=== PATIENT | female | born 1955 | race Caucasian/White ===

== ENCOUNTER 2023-07-15 22:54 | Inpatient (IN) | payer MEDICARE, SELFPAY ==
[2023-07-15 19:12] VITALS: BP 142/84
[2023-07-15] MEDS: ZOSYN 50 IV (20:44)
[2023-07-15 21:05] LABS: % Basophils 0.3 % (0-2); % Eosinophils 4.5 % (0-6); % Immature Granulocytes 0.3 % (0-0.5); % Lymphocytes 15.9 % (20.5-51.1); % Monocytes 7.2 % (1.7-9.3); % Neutrophils 71.8 % (42.2-75.2); Absolute Eosinophils 0.3 10^3/uL (0-0.7); Absolute Monocytes 0.5 10^3/uL (0.1-0.6); Absolute Neutrophils 4.7 10^3/uL (1.4-6.5); Hematocrit 34.5 % (37.0-47.0); Mean Corp Hgb Conc. 34.8 g/dL (33.0-37.0); Mean Corpuscular Volume 94.8 fL (81.0-99.0); Mean Platelet Volume 9.6 fL (7.4-10.4); Nucleated Red Blood Cells % 0 %; Platelet Count 145 10^3/uL (130-400); Red Blood Cell Count 3.64 10^6/uL (4.20-5.40); Red Cell Dist. Width 13.5 % (11.5-14.5); White Blood Cell Count 6.5 10^3/uL (4.8-10.8)
--- NOTE | 2023-07-15 21:20 | ED.SKININJ ---
HPI-Injury
General
Chief Complaint: Skin Problem
Source: patient
Exam Limitations: none
Time Seen by Provider: 07/15/23 19:41
Nursing documentation reviewed up to this point in time: agreed with
Travel History
Have you had any contact with someone who has COVID-19?: No
Do you have any symptoms of coronavirus? Fever > 100 degrees, chills, cough, shortness of breath, sore throat, loss of taste or smell, muscle aches, or headache?: No
History of Present Illness-Injury
Initial Injury comments:
68-year-old female with history of HTN, asthma, chronic back pain on oxycodone and gabapentin, presents with right inner thigh redness, swelling, pain from a cat scratch by her cat 1 week ago. She states initially she washed the area and it was
okay for 2 days then it started getting sore and weeping clear fluid and this morning the pain was severe. She denies fever or chills. Denies nausea or vomiting.
Cat is an indoor cat and is up-to-date with his immunization.
Past History
Past History
ED Past Medical History: Cancer
ED Past Surgical History: Cholecystectomy, and Orthopedic
Social History
Tobacco: Non-smoker
Alcohol: None
Drug: None
Living: with family
Employment: Employed
Family History
Family History: Hypertension
Review of Systems
Review of Systems
Allergies reviewed?: Yes
All Other Systems: ROS reviewed and negative except as documented in HPI and ROS
Constitutional: Denies fever or chills
Respiratory: Denies trouble breathing
Cardiac: Denies chest pain
ABD/GI: Denies abdominal pain
Musculoskeletal: Reports back pain (chronic)
Skin: Reports other (redness, swelling, pain around cat bite right medial thigh)
Phy Exam
Physical Exam
Physical Exam:
GENERAL: No acute distress. A&Ox3. Morbid obesity
CONSTITUTIONAL: Afebrile.
RESPIRATORY: Regular respirations, nonlabored, lungs clear.
CARDIOVASCULAR: Regular rate and rhythm, no murmurs, no rubs.
GI: Soft, obese, nontender, normal BS
MUSCULOSKELETAL: Difficulty ambulating due to obesity. Ambulated to BR and back with cane, slowly with significant pain inner right thigh. Well perfused.
SKIN: Warm, dry, pink. Medial right lower thigh with 20 x 24 erythematous, tender, mildly firm area with puncture in center. No drainage
PSYCH: Normal mood and affect. Well kept, interactive and appropriate
NEUROLOGIC: Awake, alert and oriented. No focal neurological deficits
Course
Orders/Labs/Results
Orders:
Orders
07/15/23 20:29
Piperacillin/Tazo 3.375 Gram [Zosyn] 3.375 gram in 50 ml IV NOW
07/15/23 20:55
Complete Blood Count/With Diff Urgent
Comprehensive Metabolic Panel Urgent
Abnormal Lab Results
07/15/23
20:55
RBC 3.64 L 10^6/uL
(4.20-5.40)
Hct 34.5 L %
(37.0-47.0)
MCH 33.0 H pg
(27.0-31.0)
Absolute Lymphs (auto) 1.0 L 10^3/uL
(1.2-3.4)
Lymphocytes % 15.9 L %
(20.5-51.1)
BUN 23 H mg/dl
(7-17)
Total Bilirubin 1.4 H mg/dl
(0.2-1.3)
AST 46 H U/L
(14-36)
ALT 55 H U/L
(0-35)
07/15/23 20:55
07/15/23 20:55
Vital Signs
Initial and Last Documented VS:
Initial Vital Signs
Temp Pulse Resp BP Pulse Ox
98.4 F 70 20 142/84 95
07/15/23 19:12 07/15/23 19:12 07/15/23 19:12 07/15/23 19:12 07/15/23 19:12
Last Documented Vital Signs
Temp Pulse Resp BP Pulse Ox
98.4 F 70 20 142/84 95
07/15/23 19:12 07/15/23 19:12 07/15/23 19:12 07/15/23 19:12 07/15/23 19:12
MDM/Problems Addressed
Differential Diagnosis Includes:
cellulitis
MDM/Problems Addressed:
68-year-old female with history of HTN, asthma, chronic back pain on oxycodone and gabapentin, presents with right inner thigh redness, swelling, pain from a cat scratch by her cat 1 week ago. She states initially she washed the area and it was
okay for 2 days then it started getting sore and weeping clear fluid and this morning the pain was severe. She denies fever or chills. Denies nausea or vomiting.
Cat is an indoor cat and is up-to-date with his immunization.
Afebrile
07/15/2023 2133 PM
CBC without clinically significant abnormality
CMP pending
Patient with significant difficulty getting on and off the bed due to her size and due to pain in the leg. She typically walks with a cane and she has gotten out of bed to ambulate to the bathroom and back with her cane but significantly painful.
She already takes oxycodone 10 mg for chronic back pain and she states this does not touch her pain.
Plan: Admit: Cellulitis right thigh
Hospitalist notified of admission
*Critical Care Note
Total Time (30-74mins, 75-104mins- exclusive of procedures): Not Applicable
Patient Management
Social determinants of health affecting care: Living situation (lives with 90 yo mother who wouldn't be much help at home.)
ED Attending Note
-
Portions of this chart may have been created with voice recognition software.� Occasional wrong word or��sound alike� substitutions may have occurred due to the inherent limitations of voice recognition software.
Discharge Plan
Departure
Patient Disposition: Admit
Date of Disposition: 07/15/23
Time of Disposition: 21:34
Presentation/result/management discussed w/ accepting MD/DO: Hospitalist
Condition: Fair
Discharge Problem:
Cellulitis of right thigh, Cat bite of right thigh
Prescriptions:
No Action
anastrozole 1 MG tablet
1 mg PO HS
PreserVision AREDS-2 1 EACH capsule
1 ea PO DAILY
mirtazapine 15 MG tablet
15 mg PO HS
atorvastatin 20 mg Tablet
20 mg PO HS
oxycodone-acetaminophen [Percocet] 10-325 mg Tablet
1 tab PO Q4H PRN (Reason: severe pain)
gabapentin 300 mg Capsule
300 mg PO HS
albuterol sulfate 90 mcg/actuation Hfa Aerosol Inhaler
2 puff INHALATION Q4HPRN PRN (Reason: shortness of breath/wheeze)
losartan 100 mg Tablet
100 mg PO DAILY
escitalopram oxalate [Lexapro] 20 mg Tablet
20 mg PO DAILY
metoprolol succinate 100 mg Tablet Extended Release 24 Hr
100 mg PO DAILY
methocarbamol 750 mg tablet
750 mg PO HS
budesonide 0.5 mg/2 mL Suspension For Nebulization
0.5 mg inhalation R BID Qty: 60 0RF
albuterol sulfate 2.5 mg /3 mL (0.083 %) Solution For Nebulization
2.5 mg inhalation R TID Qty: 90 0RF
nifedipine 30 mg Tablet Extended Release
30 mg PO DAILY Qty: 30 0RF
furosemide [Lasix] 20 mg tablet
20 mg PO DAILY Qty: 30 0RF
spironolactone [Aldactone] 25 mg Tablet
25 mg PO DAILY Qty: 30 0RF
Referrals:
Ko Teresa, [Family Provider] -
Interventions
Interventions:
*Risk Screen - Suicide Last Done: 07/15/23 19:12
*General Assessment Last Done: 07/15/23 19:12
*Neglect/Abuse Screening Last Done: 07/15/23 19:12
ED-Skin Assessment Last Done: 07/15/23 21:06
[2023-07-15 21:23] LABS: ALT (SGPT) 55 U/L (0-35); AST (SGOT) 46 U/L (14-36); Albumin 3.6 g/dl (3.5-5.0); Alkaline Phosphatase 69 U/L (38-126); Blood Urea Nitrogen 23 mg/dl (7-17); Calcium 9.5 mg/dl (8.4-10.2); Carbon Dioxide 30 mmol/L (22-30); Chloride 107 mmol/L (98-107); Glucose 87 mg/dl (70-99); Potassium 4.2 mmol/L (3.5-5.1); Sodium 138 mmol/L (135-145); Total Bilirubin 1.4 mg/dl (0.2-1.3); Total Protein 6.6 g/dl (6.3-8.2); eGFR > 60.00
--- NOTE | 2023-07-15 21:37 | HPS.HSE ---
Addendum entered and electronically signed by Saqib Light DO 07/15/23 23:21:
Patient seen and examined independently. Agree with findings and plan as set forth by ARVIND Fay.
Patient is a 68y F with PMH significant for hypertension, asthma and chronic pain / chronic opioid dependence who presents to ED c.o R thigh pain, swelling and redness. Patient notes that she suffered a scratch from her house cat about one week
ago in the area of the R medial thigh. She states that for the past 2 days there has been some clear colored drainage from the area. This AM, she awoke to severe pain, swelling and redness in the medical thigh which was new.
Patient denies any systemic complaints of fevers, chills, N/V/D, etc.
Ass:
Right Thigh Cellulitis
Cat Scratch
Chronic Pain Syndrome
Chronic Opioid Dependence
Benign Hypertension
DREW on CPAP
Asthma without Acute Exacerbation
Morbid Obesity due to excess calories
Plan:
Admit for further evaluation and treatment.
Continue IV abx with Zosyn for now and follow for clinical improvement.
Consider further evaluation with CT or US if symptoms worsen or do not improve.
Continue usual outpatient medications including chronic pain medicines.
Additional Toradol as needed for pain.
Original Note:
Family Physician
-
Family Physician: Ko Teresa, DO
Chief Complaint
-
right inner thigh cellulitis
History of Present Illness
68-year-old female with history of HTN, asthma, chronic back pain on oxycodone and gabapentin, presents with right inner thigh redness, swelling, pain from a cat scratch by her cat 1 week ago.� She states initially she washed the area, applied
Triple A. 3 days after, she noticed some clear drainage from the site. this morning she woke up with red, swollen and painful.� She denies fever or chills.� Denies nausea or vomiting, abdominal pain. denied ECKERT, dizzy or syncopal episode. denied
chest pain, sob. denied dysuria or hematuria.
Cat is an indoor cat and is up-to-date with his immunization.
patient received a dose of Zosyn in ER. admitting for further management.
Medical History
Past Medical History
Past Medical History: Reports Other
Additional Past Medical History:
asthma
htn
back pain
breast ca
sleep apnea
Past Surgical History: Reports Other
Additional Past Surgical History:
cholecystectomy
c section
right hip replacement
left knee replacement
c section
Social History
Tobacco: Non-smoker
Alcohol: None
Drug: None
Family History
Family History: Not pertinent
Allergies / Home Medications
Allergies reflects when Allergies were last updated in [facility].
Home Medications with original date entered in [facility]
Allergy/Medication List:
Allergies
Allergy/AdvReac Type Severity Reaction Status Date / Time
hydralazine Allergy Unknown Verified 10/30/22 20:46
naproxen Allergy bruising Verified 10/31/22 16:20
Home Medications
anastrozole 1 mg tablet 1 mg PO HS Hormonal Agent 09/04/16
mirtazapine 15 mg tablet 15 mg PO HS Sleep 09/04/16
vit C 250 mg-vit E 90 mg-zinc 40 mg-copper 1 [id number]-skjifg capsule (PreserVision AREDS-2) 1 ea PO DAILY Supplement 09/04/16
albuterol sulfate 90 mcg/actuation aerosol inhaler 2 puff inhalation Q4HPRN PRN shortness of breath/wheeze 10/30/22
atorvastatin 20 mg tablet 20 mg PO HS High Cholesterol 10/30/22
escitalopram oxalate 20 mg tablet (Lexapro) 20 mg PO DAILY Mental Health/Anxiety 10/30/22
gabapentin 300 mg capsule 300 mg PO HS Neurological Condition 10/30/22
losartan 100 mg tablet 100 mg PO DAILY Blood Pressure 10/30/22
oxycodone-acetaminophen 10 mg-325 mg tablet (Percocet) 1 tab PO Q4H PRN severe pain 10/30/22
metoprolol succinate 100 mg tablet,extended release 24 hr 100 mg PO DAILY Blood Pressure 10/31/22
albuterol sulfate 2.5 mg/3 mL (0.083 %) solution for nebulization 2.5 mg (3 mL) inhalation R TID #90 applic 11/03/22
budesonide 0.5 mg/2 mL suspension for nebulization 0.5 mg (2 mL) inhalation R BID #60 mL 11/03/22
furosemide 20 mg tablet (Lasix) 20 mg PO DAILY #30 tabs 11/04/22
nifedipine 30 mg tablet,extended release 30 mg PO DAILY #30 tabs 11/04/22
spironolactone 25 mg tablet (Aldactone) 25 mg PO DAILY Fluid Retention/Swelling #30 tabs 11/05/22
cyclobenzaprine 10 mg tablet 10 mg PO TID PRN muscle spasm 07/15/23
oxybutynin chloride 5 mg tablet 5 mg PO DAILY 07/15/23
Review of Systems
-
Constitutional: Reports No Symptoms
EENT: Reports No Symptoms
Respiratory: Reports No Symptoms
Cardiac: Reports No Symptoms
Abdomen/GI: Reports No Symptoms
: Reports No Symptoms
Musculoskeletal: Reports No Symptoms
Skin: Reports Other (right inner thigh, redness, swelling)
Neurological: Reports No Symptoms
Endocrine: Reports No Symptoms
Hematologic/Lymphatic: Reports No Symptoms
Psych: Reports No Symptoms
Physical Exam
Vital Signs
Vital Signs
Temp Pulse Resp BP Pulse Ox
98.4 F 70 20 142/84 95
07/15/23 19:12 07/15/23 19:12 07/15/23 19:12 07/15/23 19:12 07/15/23 19:12
Physical Exam
General: Well Developed, Well Nourished and No Apparent Distress
HEENT: NormoCephalic, Moist mucous membranes and Atraumatic
Respiratory: Clear
Cardiac: S1/S2 and Regular Rhythm; No Murmur or Rub
GI: Soft, Non Tender, Non Distended and Normal Bowel Sounds; No Organomegaly
Rectal: Deferred by Provider
Musculoskeletal: No Clubbing, No Cyanosis and No Edema
Skin: Rash and Other (right inner thigh redness, swelling)
Neuro: AO x 3 and Nonfocal/grossly intact
Psych: Calm
Laboratory Results
-
07/15/23 20:55
07/15/23 20:55
Laboratory Results
Total Bilirubin 1.4 mg/dl (0.2-1.3) H 07/15/23 20:55
AST 46 U/L (14-36) H 07/15/23 20:55
ALT 55 U/L (0-35) H 07/15/23 20:55
Alkaline Phosphatase 69 U/L (38-126) 07/15/23 20:55
Data Reviewed
-
Lab Data: Labs Reviewed by me
Impression/Plan
-
#left thigh cellulitis from cat scratch
-iv zosyn in ER
-Tylenol prn for fever
-ctm
#Chronic LFT elevation
-ast 46,alt 55
-ctm
#hxt of asthma
-not in acute exacerbation
-nebs from home continued
#Essential Hypertension
-c/w BB, Aldactone, Lasix, Losartan,nifedipine, spironolactone
Hyperlipidemia
-Continue atorvastatin
Anxiety/Depression
-Continue Lexapro and Remeron
#Chronic Pain Syndrome with Opioid Dependence secondary to Spinal Stenosis
-Continue gabapentin and cyclobenzaprine
-Continue Percocet as prior to admission
Obstructive Sleep Apnea
-Continue CPAP
Morbid Obesity
-Affects all aspects of care
Hx Right Breast CA
-Continue anastrozole
DVT proph: Lovenox
Code Status: Full Code
[2023-07-15 23:59] VITALS: BMI 57.3
[2023-07-16] MEDS: NEURONTIN 300 MG PO ×2 (00:33→21:05)
[2023-07-16] MEDS: REMERON 15 MG PO ×2 (00:33→21:06)
[2023-07-16] MEDS: FLEXERIL 10 MG PO (00:33)
[2023-07-16] MEDS: ROXICODONE 10 MG PO ×3 (00:38→08:52)
[2023-07-16] MEDS: LIPITOR PO (00:50)
[2023-07-16 00:56] VITALS: BP 146/89
[2023-07-16] MEDS: ARIMIDEX PO (01:09)
[2023-07-16 01:30] VITALS: BP 135/79
[2023-07-16] MEDS: ZOSYN 50 IV ×4 (02:08→20:40)
[2023-07-16 06:00] VITALS: BMI 55.6
[2023-07-16 06:33] LABS: Hematocrit 32.5 % (37.0-47.0); Hemoglobin 11.4 g/dL (12.0-16.0); Mean Corp Hgb Conc. 35.1 g/dL (33.0-37.0); Mean Corpuscular Volume 94.2 fL (81.0-99.0); Mean Platelet Volume 10.2 fL (7.4-10.4); Platelet Count 126 10^3/uL (130-400); Red Blood Cell Count 3.45 10^6/uL (4.20-5.40); Red Cell Dist. Width 13.5 % (11.5-14.5)
[2023-07-16 06:42] LABS: Blood Urea Nitrogen 18 mg/dl (7-17); Calcium 9.4 mg/dl (8.4-10.2); Carbon Dioxide 31 mmol/L (22-30); Chloride 105 mmol/L (98-107); Estimated Creatinine Clearance 82 ml/min; Glucose 96 mg/dl (70-99); Potassium 3.9 mmol/L (3.5-5.1); Sodium 136 mmol/L (135-145); eGFR > 60.00
[2023-07-16] MEDS: ALDACTONE 25 MG PO (08:01)
[2023-07-16] MEDS: LASIX 20 MG PO (08:02)
[2023-07-16] MEDS: PROCARDIA XL (EXTENDED RELEASE) 30 MG PO (08:03)
[2023-07-16] MEDS: LEXAPRO 20 MG PO (08:03)
[2023-07-16] MEDS: COZAAR 100 MG PO (08:03)
[2023-07-16] MEDS: TOPROL XL 100 MG PO (08:04)
[2023-07-16] MEDS: VENTOLIN NEBULES 2.5 MG INH ×3 (08:05→20:12)
[2023-07-16] MEDS: PULMICORT 0.5 MG INH ×2 (08:06→20:12)
[2023-07-16 08:32] VITALS: BP 130/70
--- NOTE | 2023-07-16 12:10 | W.PN.HOSP.TC ---
Today's Communication/Plan
-
Add Toradol
Continue antibiotics
Assessment / Plan
Assessment / Plan
Gen-AAOx3, NAD, morbid obesity
HEENT-NC, AT, anicteric, clear oral mm
Neck-supple
CV-reg, no M, +S1/S2
Lungs-clear B/L
Abd-soft, NT, ND
Ext-right thigh edema
Musculoskeletal-no cyanosis, clubbing
Skin-warm and dry, right medial thigh diffuse erythematous lesion with clearing at the borders
Neuro-grossly non-focal
Psych-calm, cooperative
Right medial thigh cellulitis -due to cat scratch. No signs or symptoms of sepsis. Continue IV antibiotics. Erythema is regressing in size. She is requesting analgesics, can use IV Toradol as needed.
Chronic pain syndrome/chronic opioid dependence -due to chronic low back pain. On oxycodone 10 mg up to 6 times per day.
Essential hypertension -stable.
DREW -on CPAP.
Mild intermittent asthma -stable.
Hyperlipidemia -on atorvastatin.
Morbid obesity due to excess calories
Full code
Anticipated Discharge: 24 - 48 hours
Subjective/Interval History
-
Date of Service: July 16, 2023
Patient seen/examined. Complaining of right thigh pain at cat bite site.
Objective Data
-
Labs:
Laboratory Results
07/16/23
06:13
WBC 4.0 L
Hgb 11.4 L
Hct 32.5 L
Plt Count 126 L
Sodium 136
Potassium 3.9
Chloride 105
Carbon Dioxide 31 H
BUN 18 H
Creatinine 0.8
Glucose 96
Calcium 9.4
Vital Signs:
Vital Signs
Temp Pulse Resp BP Pulse Ox
98.6 F 70 16 130/70 93
07/16/23 08:32 07/16/23 08:32 07/16/23 08:32 07/16/23 08:32 07/16/23 08:32
Review of Systems
-
History Source: Patient
All other systems: Reviewed and negative
[2023-07-16] MEDS: TORADOL 30 MG IV ×2 (12:34→21:45)
[2023-07-16 14:29] VITALS: BP 122/55
[2023-07-16] MEDS: DILAUDID 0.5 MG IV ×4 (14:31→23:38)
[2023-07-16 15:45] VITALS: BP 130/63
[2023-07-16] MEDS: FLUSH (NSS) 2 FLUSH IV (17:27)
[2023-07-16] MEDS: LOVENOX 40 MG SC (17:27)
[2023-07-16] MEDS: ARIMIDEX 1 MG PO (21:06)
[2023-07-16] MEDS: LIPITOR 20 MG PO (21:06)
[2023-07-16] MEDS: DITROPAN 5 MG PO (21:08)
[2023-07-16 23:00] VITALS: BP 163/74
[2023-07-17] MEDS: ROXICODONE 10 MG PO ×2 (02:10→23:13)
[2023-07-17] MEDS: ZOSYN 50 IV ×2 (02:11→09:43)
[2023-07-17 06:06] LABS: Hematocrit 33.5 % (37.0-47.0); Hemoglobin 11.6 g/dL (12.0-16.0); Mean Corp Hgb Conc. 34.6 g/dL (33.0-37.0); Mean Corpuscular Hgb 32.8 pg (27.0-31.0); Mean Corpuscular Volume 94.6 fL (81.0-99.0); Mean Platelet Volume 10.7 fL (7.4-10.4); Platelet Count 120 10^3/uL (130-400); Red Blood Cell Count 3.54 10^6/uL (4.20-5.40); Red Cell Dist. Width 13.7 % (11.5-14.5); White Blood Cell Count 6.5 10^3/uL (4.8-10.8)
[2023-07-17 06:29] LABS: Blood Urea Nitrogen 15 mg/dl (7-17); Calcium 9.5 mg/dl (8.4-10.2); Carbon Dioxide 26 mmol/L (22-30); Chloride 106 mmol/L (98-107); Estimated Creatinine Clearance 92 ml/min; Glucose 93 mg/dl (70-99); Potassium 3.5 mmol/L (3.5-5.1); Sodium 136 mmol/L (135-145); eGFR > 60.00
[2023-07-17] MEDS: DILAUDID 0.5 MG IV (06:45)
[2023-07-17 07:30] VITALS: BP 159/78
[2023-07-17] MEDS: VENTOLIN NEBULES 2.5 MG INH ×2 (07:36→13:26)
[2023-07-17] MEDS: PULMICORT 0.5 MG INH (07:37)
--- NOTE | 2023-07-17 07:50 | W.PN.HOSP.TC ---
Addendum entered and electronically signed by Fitz Mcpherson MD 07/17/23 15:43:
pte does not want buspar- will use xanax but one time since she is on narcotics and needs to use judiciously
Addendum entered and electronically signed by Fitz Mcpherson MD 07/17/23 13:15:
wants something for anxiety-add buspar and reeval
Original Note:
Today's Communication/Plan
-
Continue IV antibiotics. ID consult.
Assessment / Plan
Assessment / Plan
Gen-AAOx3, NAD, morbid obesity
HEENT-NC, AT, anicteric, clear oral mm
Neck-supple
CV-reg, no M, +S1/S2
Lungs-clear B/L
Abd-soft, NT, ND
Ext-right thigh edema
Musculoskeletal-no cyanosis, clubbing
Skin-warm and dry, right medial thigh diffuse erythematous lesion with clearing at the borders
Neuro-grossly non-focal
Psych-calm, cooperative
A/P:
Right medial thigh cellulitis -due to cat scratch. No signs or symptoms of sepsis. Continue IV antibiotics changed to IV Unasyn. ID consult for further advice.
Chronic pain syndrome/chronic opioid dependence -due to chronic low back pain. On oxycodone 10 mg up to 6 times per day and also on acetaminophen and ketorolac as needed.
Essential hypertension -stable.
DREW -on CPAP.
Mild intermittent asthma -stable.
Hyperlipidemia -on atorvastatin.
Leukopenia-improved
Anemia-stable, f/u as OP
Thrombocytopenia- needs f/u a OP
Morbid obesity due to excess calories
Full code
Anticipated Discharge: 24 - 48 hours
Subjective/Interval History
-
Date of Service: July 17, 2023
Pain and erythema on her right thigh is about the same as per patient. She does have significant discomfort when moving around and ambulating. Afebrile
Objective Data
-
Labs:
Laboratory Results
07/17/23
05:07
WBC 6.5
Hgb 11.6 L
Hct 33.5 L
Plt Count 120 L
Sodium 136
Potassium 3.5
Chloride 106
Carbon Dioxide 26
BUN 15
Creatinine 0.7
Glucose 93
Calcium 9.5
Vital Signs:
Vital Signs
Temp Pulse Resp BP Pulse Ox
98.4 F 72 18 163/74 97
07/16/23 23:00 07/17/23 07:41 07/17/23 07:41 07/16/23 23:00 07/17/23 07:41
I&O
07/16/23 07/17/23 07/18/23
06:59 06:59 06:59
Intake Total 720 / 720
Balance 720 / 720
Review of Systems
-
All other systems: Reviewed and negative
--- NOTE | 2023-07-17 08:55 | WOUNDNOTE ---
[facility] RN note: Patient admitted with cellulitis R thigh from cat scratch (patient's cat) about 1 week ago.
See H&P for complete history.
PMH: HTN, asthma, chronic pain/opioid use, morbid obesity, sleep apnea, cholecystectomy, C section, R hip replacement, R knee replacement, R breast ca, R lumpectomy.
Wound Location and type/assessment: Patient admitted with: Cellulitis R medial thigh with tenderness, dry puncture noted without drainage. No open/draining wounds. R thigh erythema appears receded from marker outline. Patient reports pain slightly
improved. Coccyx crease MASD.
Appetite: fair-poor. Have oatmeal this am.
Pressure redistribution devices in place: [employer] Accumax. Patient sitting in recliner chair. She stood with walker for skin assessment.
Plan: t/c SPD and ordered bariatric air chair cushion. Discussed with patient and RN Ashley who will give to patient.
Will follow peripherally as needed.
[2023-07-17] MEDS: LASIX 20 MG PO (09:42)
[2023-07-17] MEDS: LEXAPRO 20 MG PO (09:43)
[2023-07-17] MEDS: ALDACTONE 25 MG PO (09:43)
[2023-07-17] MEDS: TOPROL XL 100 MG PO (09:43)
[2023-07-17] MEDS: COZAAR 100 MG PO (09:43)
[2023-07-17] MEDS: PROCARDIA XL (EXTENDED RELEASE) 30 MG PO (10:33)
[2023-07-17] MEDS: UNASYN IV ×3 (12:30→23:14)
--- NOTE | 2023-07-17 12:32 | CM ---
Reviewed the chart notes and spoke with the patient at the bedside. The patient resides with her mother, sister, and stepfather in a one story home with no steps to enter. The patient has a cane, nebulizer, CPAP machine, and O2 through [facility]. Patient uses O2 intermittently. The patient reports no VN or SNF in the past. The patient confirmed her pharmacy of choice is the [facility]. The patient anticipates being discharged to home with no
anticipated needs being identified at this time. CM continues to be available to patient/family and is monitoring medical plan for needs at discharge.
Plan: Discharge to home when medically stable. No needs anticipated.
--- NOTE | 2023-07-17 13:00 | VATNOTE ---
Patient reports history of right breast cancer with lymph node removal. Right arm IV removed, new IV placed in left arm. Limb alert bracelet in place.
[2023-07-17 15:22] VITALS: BP 145/81; PULSE 78; O2SAT 93
[2023-07-17 15:38] VITALS: BP 145/81
[2023-07-17] MEDS: XANAX 0.25 MG PO (16:37)
--- NOTE | 2023-07-17 17:24 | CON.ID ---
Consultation
-
Date/Time Consultation Requested: 07/17/2023, 1115
Date/Time Consultation Performed: 07/17/2023, 1730
Requesting Provider: Dr. Fitz Mcpherson
Performing Provider: Dr. Raisa Kirk
Reason for Consultation: Cat bite cellulitis
Chief Complaint / Past History
Chief Complaint
Right thigh redness and swelling
History of Present Illness
68 year old female with hx asthma, HTN, chronic pain who's indoor pet cat landed on her right upper thigh digging her claws to jump off of her. This happened last week. Thigh had clear fluid drainage. On Saturday 07/15, she woke up noting her right
medial thigh was extremely red, swollen and painful. No fever. She came to the ED and was started on Zosyn. Today abx changed to Unasyn. She reports improvement of the erythema and pain today. She is up to date with tetanus vaccine within last 10
years.
Past History
Additional Past Medical History:
asthma
HTN
chronic back pain on oxycodone
hx right breast ca
sleep apnea on CPAP
Class III obesity BMI55
cholecystectomy
c� section
right hip replacement
left knee replacement
c section
Allergy History:
hydralazine Allergy (Verified 10/30/22 20:46)
Unknown
naproxen Allergy (Verified 10/31/22 16:20)
bruising
Medications Reviewed: Yes
Current Antibiotics:
Zosyn (07/15 to 07/17)
Unasyn day 1
Social History
Tobacco: Non-Smoker
Alcohol: None
Drug: None
Family History
Family History: Not Pertinent
Review of Systems
Review of Systems
General: Negative Fever, Chills or Change in Appetite
Respiratory: Negative Dyspnea or Cough
Gasteroenterology: Other (no diarrhea); Negative Nausea or Vomiting
Genital / Urological: Negative Dysuria
Neurological: Negative Headache or Dizziness
All systems: All other systems were reviewed and were negative
Vital Signs
Temp Pulse Resp BP Pulse Ox
98.4 F 78 18 145/81 94
07/17/23 15:38 07/17/23 15:38 07/17/23 15:38 07/17/23 15:38 07/17/23 15:38
Physical Exam
Physical Exam
Constitutional: No Acute Distress
Eyes: No Conjunctival Hemorrhage and Sclera Anicteric
Cardiovascular: Regular Rate and S1/S2
Pulmonary: Clear
Gastrointestinal: Soft, Non Tender, Non Distended and Normal Bowel Sounds
Extremities: Edema (right thigh) and Erythema (right medial thigh to groin with bright erythema/warmth, receding from marked line, mildly tender)
Neurological: AO x 3
Lab / Diagnostic Study Results
07/17/23 05:07
07/17/23 05:07
Abs Immat Gran (auto) 0.0 10^3/uL (0-0.05) 07/15/23 20:55
Absolute Neuts (auto) 4.7 10^3/uL (1.4-6.5) 07/15/23 20:55
Absolute Lymphs (auto) 1.0 10^3/uL (1.2-3.4) L 07/15/23 20:55
Absolute Monos (auto) 0.5 10^3/uL (0.1-0.6) 07/15/23 20:55
Absolute Basos (auto) 0.0 10^3/uL (0-0.2) 07/15/23 20:55
Immature Gran % 0.3 % (0-0.5) 07/15/23 20:55
Neutrophils % 71.8 % (42.2-75.2) 07/15/23 20:55
Lymphocytes % 15.9 % (20.5-51.1) L 02/24/24 20:55
Monocytes % 7.2 % (1.7-9.3) 07/15/23 20:55
Eosinophils % 4.5 % (0-6) 07/15/23 20:55
Basophils % 0.3 % (0-2) 07/15/23 20:55
Microbiology Results
Micro:
07/16/23 18:38 MRSA Screen - Pending
Nose
Assessment / Plan
# Right thigh severe cellulitis from cat-scratch
- Cellulitis improving
- Agree with Unasyn
-Continue to monitor.
[2023-07-17] MEDS: LOVENOX 40 MG SC (17:48)
[2023-07-17] MEDS: VENTOLIN NEBULES INH (20:33)
[2023-07-17] MEDS: PULMICORT INH (20:33)
[2023-07-17] MEDS: NEURONTIN 300 MG PO (21:08)
[2023-07-17] MEDS: LIPITOR 20 MG PO (21:08)
[2023-07-17] MEDS: ARIMIDEX 1 MG PO (21:09)
[2023-07-17] MEDS: REMERON 15 MG PO (21:09)
[2023-07-17] MEDS: DITROPAN 5 MG PO (21:09)
[2023-07-17] MEDS: DESENEX/MITRAZOL/ZEASORB 1 APPLIC TOPICAL (21:11)
[2023-07-17 23:03] VITALS: BP 147/80
[2023-07-18] MEDS: UNASYN IV ×2 (06:14→12:22)
[2023-07-18 06:54] LABS: Hematocrit 31.9 % (37.0-47.0); Hemoglobin 11.5 g/dL (12.0-16.0); Mean Corp Hgb Conc. 36.1 g/dL (33.0-37.0); Mean Corpuscular Hgb 33.2 pg (27.0-31.0); Mean Corpuscular Volume 92.2 fL (81.0-99.0); Red Blood Cell Count 3.46 10^6/uL (4.20-5.40); Red Cell Dist. Width 13.4 % (11.5-14.5); White Blood Cell Count 6.1 10^3/uL (4.8-10.8)
[2023-07-18 07:08] LABS: Blood Urea Nitrogen 11 mg/dl (7-17); Calcium 9.5 mg/dl (8.4-10.2); Carbon Dioxide 27 mmol/L (22-30); Chloride 103 mmol/L (98-107); Estimated Creatinine Clearance 107 ml/min; Glucose 93 mg/dl (70-99); Sodium 138 mmol/L (135-145); eGFR > 60.00
--- NOTE | 2023-07-18 08:01 | W.PN.HOSP.TC ---
Today's Communication/Plan
-
Discharge planning today
Assessment / Plan
Assessment / Plan
Gen-AAOx3, NAD, morbid obesity
HEENT-NC, AT, anicteric, clear oral mm
Neck-supple
CV-reg, no M, +S1/S2
Lungs-clear B/L
Abd-soft, NT, ND
Ext-right thigh edema
Musculoskeletal-no cyanosis, clubbing
Skin-warm and dry, right medial thigh diffuse erythematous lesion with clearing at the borders
Neuro-grossly non-focal
Psych-calm, cooperative
A/P:
Right medial thigh cellulitis -due to cat scratch. No signs or symptoms of sepsis. Continue IV antibiotics changed to IV Unasyn. ID consult appreciated. ID cleared her for discharge today
Chronic pain syndrome/chronic opioid dependence -due to chronic low back pain. On oxycodone 10 mg up to 6 times per day and also on acetaminophen and ketorolac as needed.
Essential hypertension -stable.
DREW -on CPAP.
Mild intermittent asthma -stable.
Hyperlipidemia -on atorvastatin.
Leukopenia-improved
Anemia-stable, f/u as OP
Thrombocytopenia- needs f/u a OP
Morbid obesity due to excess calories
Full code
Anticipated Discharge: Today
Subjective/Interval History
-
Date of Service: July 18, 2023
Patient feels much better today, erythema is regressing. Afebrile
Objective Data
-
Labs:
Laboratory Results
07/18/23
04:59
WBC 6.1
Hgb 11.5 L
Hct 31.9 L
Plt Count
Sodium 138
Potassium 3.0 L
Chloride 103
Carbon Dioxide 27
BUN 11
Creatinine 0.5 L
Glucose 93
Calcium 9.5
Vital Signs:
Vital Signs
Temp Pulse Resp BP Pulse Ox
98.4 F 73 20 147/80 97
07/17/23 23:03 07/17/23 23:03 07/17/23 23:03 07/17/23 23:03 07/17/23 23:03
I&O
07/17/23 07/18/23 07/19/23
06:59 06:59 06:59
Intake Total 720 / 720 1200 / 1200
Balance 720 / 720 1200 / 1200
[2023-07-18] MEDS: VENTOLIN NEBULES INH ×2 (08:09→13:52)
[2023-07-18] MEDS: PULMICORT INH (08:09)
[2023-07-18 08:12] VITALS: BP 147/76
[2023-07-18] MEDS: COZAAR 100 MG PO (09:10)
[2023-07-18] MEDS: PROCARDIA XL (EXTENDED RELEASE) 30 MG PO (09:10)
[2023-07-18] MEDS: LEXAPRO 20 MG PO (09:10)
[2023-07-18] MEDS: LASIX 20 MG PO (09:11)
[2023-07-18] MEDS: ALDACTONE 25 MG PO (09:11)
[2023-07-18] MEDS: TOPROL XL 100 MG PO (09:11)
[2023-07-18] MEDS: DESENEX/MITRAZOL/ZEASORB 1 APPLIC TOPICAL (09:12)
--- NOTE | 2023-07-18 09:21 | W.PN.ID1 ---
Date of Service
Date of Service: July 18, 2023
Today's Communication
After 12PM dose of IV Unasyn, can dc home on Augmentin 875 mg po bid x 10 more days.
Assessment / Plan
# Right thigh severe cellulitis from cat-scratch
- Cellulitis continues to improve,
- After 12PM dose of IV Unasyn, can dc home on Augmentin 875 mg po bid x 10 more days.
Chief Complaint
-: Cellulitis
Subjective / Review of Systems
Thigh continues to improve.
Vital Signs / Physical Exam
Vital Signs
Vital Signs
Temp Pulse Resp BP Pulse Ox
97.7 F 60 14 147/76 95
07/18/23 08:12 07/18/23 08:12 07/18/23 08:12 07/18/23 08:12 07/18/23 08:12
Physical Exam
Constitutional: No Acute Distress and Comfortable
Skin: Other (R medial thigh erythema decreasing, less warm, nontender)
Neurological: AO x 3
Objective Data
Lab Data
Lab Results
07/18/23 04:59
07/18/23 04:59
Estimated Creat Clear 107 ml/min 07/18/23 04:59
Total Bilirubin 1.4 mg/dl (0.2-1.3) H 07/15/23 20:55
AST 46 U/L (14-36) H 07/15/23 20:55
ALT 55 U/L (0-35) H 07/15/23 20:55
Alkaline Phosphatase 69 U/L (38-126) 07/15/23 20:55
Most recent labs reviewed.
Micro Results:
07/16/23 18:38 MRSA Screen - Final
Nose No Methicillin Resistant Staphylococcus aureus isolated.
--- NOTE | 2023-07-18 13:02 | W.DCSUMMARY ---
Discharge Summary
Discharge Data
Date of Admission: 07/15/23
Date of Discharge: 07/18/23
-
Pending Results: No
Hospital Course
Patient is 68 years old female history hypertension, chronic pain, asthma, came into the hospital with severe right thigh cellulitis from cat scratch of her cat. She was started on IV antibiotics. She was given IV Zosyn and then switched to IV
Unasyn. ID consulted. Cultures remain negative. Patient did well rest of the hospital stay. Upon discharge she will be switched to Augmentin. ID cleared her for discharge to complete a course of oral antibiotics as outpatient. She will be
discharged in relatively stable condition today.
Discharge Plan
-
Patient Disposition: Home (Routine Discharge)
Discharge Diagnosis/Procedures: Acute cellulitis, cat bite related. Chronic pain syndrome with chronic opioid dependence. Hypertension. Hyperlipidemia. Leukopenia. Anemia. Thrombocytopenia.
Diet: Low Cholesterol
Activity: As tolerated
Driving Restrictions: As prior to admission
Blood Work: Please PCP to order CBC, BMP within 1 week.
Activity Restrictions/Additional Instructions:
Miconazole powder to coccyx crease, affected areas twice a day.
Referrals:
Ko Teresa DO [Family Provider] - in less than 1 week
Prescriptions:
New
amoxicillin-pot clavulanate 875-125 mg Tablet
1 tab PO Q12 10 Days Qty: 20 0RF
Continued
anastrozole 1 MG tablet
1 mg PO HS
mirtazapine 15 MG tablet
15 mg PO HS
atorvastatin 20 mg Tablet
20 mg PO HS
gabapentin 300 mg Capsule
300 mg PO HS
albuterol sulfate 90 mcg/actuation Hfa Aerosol Inhaler
2 puff INHALATION Q4HPRN PRN (Reason: shortness of breath/wheeze)
losartan 100 mg Tablet
100 mg PO DAILY
escitalopram oxalate [Lexapro] 20 mg Tablet
20 mg PO DAILY
metoprolol succinate 100 mg Tablet Extended Release 24 Hr
100 mg PO DAILY
budesonide 0.5 mg/2 mL Suspension For Nebulization
0.5 mg inhalation R BID Qty: 60 0RF
albuterol sulfate 2.5 mg /3 mL (0.083 %) Solution For Nebulization
2.5 mg inhalation R TID Qty: 90 0RF
nifedipine 30 mg Tablet Extended Release
30 mg PO DAILY Qty: 30 0RF
furosemide [Lasix] 20 mg tablet
20 mg PO DAILY Qty: 30 0RF
spironolactone [Aldactone] 25 mg Tablet
25 mg PO DAILY Qty: 30 0RF
cyclobenzaprine 10 mg Tablet
10 mg PO TID PRN (Reason: muscle spasm)
oxybutynin chloride 5 mg Tablet
5 mg PO DAILY
oxycodone 10 mg Tablet
10 mg PO Q4H PRN (Reason: Pain)
Discharge Orders:
Discharge Patient (As Directed); Ordered 07/18/23
Ordered By: Fitz Mcpherson
Discharge Date and Time
Discharge Date/Time: 07/18/23 14:39
== END 2023-07-18 14:39 | disposition home or self-care (01) | DRG 603 ==
LOC: 2 NORTH 22:54
PROVIDERS: Registered Nurse; ADMITTING PHYSICIAN Hospitalist; ATTENDING PHYSICIAN Hospitalist; CONSULT PHYSICIAN Internal Medicine Infectious Disease; EMERGENCY PHYSICIAN Emergency Medicine; FAMILY PHYSICIAN Student in an Organized Health Care Education/Training Program
DX: L03.115 Cellulitis of right lower limb (principal); F11.20 Opioid dependence, uncomplicated; Z68.43 Body mass index [BMI] 50.0-59.9, adult; W55.01XA Bitten by cat, initial encounter; I10 Essential (primary) hypertension; J45.909 Unspecified asthma, uncomplicated; E66.01 Morbid (severe) obesity due to excess calories; G89.4 Chronic pain syndrome; E78.5 Hyperlipidemia, unspecified; G47.33 Obstructive sleep apnea (adult) (pediatric); D64.9 Anemia, unspecified; D69.6 Thrombocytopenia, unspecified
CPT/HCPCS: 80048; 80053; 85025; 85027; 87070; 94640; 96365; 97162; 99284

== ENCOUNTER 2023-07-23 15:54 | Emergency (ER) | payer MEDICARE, SELFPAY ==
[2023-07-23 15:59] VITALS: BP 138/76; BMI 56.4
--- NOTE | 2023-07-23 16:24 | ED.GENMED ---
History of Present Illness
General
Chief Complaint: Fall
Source: patient
Time Seen by Provider: 07/23/23 16:14
Travel History
Have you had any contact with someone who has COVID-19?: No
Do you have any symptoms of coronavirus? Fever > 100 degrees, chills, cough, shortness of breath, sore throat, loss of taste or smell, muscle aches, or headache?: No
History of Present Illness
History of Present Illness:
68-year-old female presents to the emergency room complaining of pain in her left lower extremity. Patient states had a fall while she was attempting to get into her sister's jeep. She has a area of swelling and bruising on the left anterior felder
as well as swelling of her ankle. No other injuries. She does not take any anticoagulants.
Past History
Past History
ED Past Medical History: Cancer
ED Past Surgical History: Cholecystectomy, and Orthopedic
Social History
Tobacco: Non-smoker
Alcohol: None
Drug: None
Living: with family
Employment: Employed
Family History
Family History: Hypertension
Phy Exam
Physical Exam
Physical Exam:
General: Awake, Alert, Oriented X3. High BMI
Vitals: unremarkable
Head: Atraumatic
Eyes: Pupils equal, EOMI
Throat: Airway intact, no exudates
Neck: Trachea midline
Lungs: Clear and equal b/l
Heart: Regular rate, no murmurs
Abd: Soft, Nontender, No pulsatile mass
Neuro: Nonfocal
Skin: Warm, dry, no rash
Extremities: Bilateral lower extremity swelling which is mostly chronic. There is a hematoma noted in the anterior left felder. There is not appear to be any compromise of the overlying skin. The ankle itself is swollen but is not particularly
tender to palpation
Course
Orders/Labs/Results
Orders:
Orders
07/23/23 16:21
Ankle, left 3 view CR [CR Ankle - Left Min 3 Views ] Urgent
Comment:
Reason For Exam: pain after fall
CR Leg Tibia/fibula Left 2 Vw Urgent
Reason For Exam: pain after a fall
07/23/23 17:42
HYDROmorphone [Dilaudid] 0.5 mg IV NOW STA
Vital Signs
Initial and Last Documented VS:
Initial Vital Signs
Temp Pulse Resp BP Pulse Ox
98.3 F 72 16 138/76 91
07/23/23 15:59 07/23/23 15:59 07/23/23 15:59 07/23/23 15:59 07/23/23 15:59
Last Documented Vital Signs
Temp Pulse Resp BP Pulse Ox
98.3 F 70 16 112/52 95
07/23/23 15:59 07/23/23 19:57 07/23/23 15:59 07/23/23 19:57 07/23/23 19:57
MDM/Problems Addressed
Differential Diagnosis Includes:
fx, hematoma,
MDM/Problems Addressed:
X-ray shows no acute fracture. Area around the hematoma was delineated and after repair of observation the hematoma did not grow. The skin overlying the hematoma does not appear to be compromised. Patient stable for discharge home follow-up with
primary care provider return for any worsening symptoms.
*Radiology
Radiology exam reviewed: radiology read reviewed
*Critical Care Note
Total Time (30-74mins, 75-104mins- exclusive of procedures): Not Applicable
ED Attending Note
-
Portions of this chart may have been created with voice recognition software.� Occasional wrong word or��sound alike� substitutions may have occurred due to the inherent limitations of voice recognition software.
Discharge Plan
Departure
Patient Disposition: Home (Routine Discharge)
Date of Disposition: 07/23/23
Time of Disposition: 19:30
Patient with high blood pressure during this ER visit?: No
Condition: Good
Discharge Problem:
Hematoma of lower extremity
Instructions: Hematoma
Prescriptions:
No Action
anastrozole 1 MG tablet
1 mg PO HS
mirtazapine 15 MG tablet
15 mg PO HS
atorvastatin 20 mg Tablet
20 mg PO HS
gabapentin 300 mg Capsule
300 mg PO HS
albuterol sulfate 90 mcg/actuation Hfa Aerosol Inhaler
2 puff INHALATION Q4HPRN PRN (Reason: shortness of breath/wheeze)
losartan 100 mg Tablet
100 mg PO DAILY
escitalopram oxalate [Lexapro] 20 mg Tablet
20 mg PO DAILY
metoprolol succinate 100 mg Tablet Extended Release 24 Hr
100 mg PO DAILY
budesonide 0.5 mg/2 mL Suspension For Nebulization
0.5 mg inhalation R BID Qty: 60 0RF
albuterol sulfate 2.5 mg /3 mL (0.083 %) Solution For Nebulization
2.5 mg inhalation R TID Qty: 90 0RF
nifedipine 30 mg Tablet Extended Release
30 mg PO DAILY Qty: 30 0RF
furosemide [Lasix] 20 mg tablet
20 mg PO DAILY Qty: 30 0RF
spironolactone [Aldactone] 25 mg Tablet
25 mg PO DAILY Qty: 30 0RF
cyclobenzaprine 10 mg Tablet
10 mg PO TID PRN (Reason: muscle spasm)
oxybutynin chloride 5 mg Tablet
5 mg PO DAILY
oxycodone 10 mg Tablet
10 mg PO Q4H PRN (Reason: Pain)
amoxicillin-pot clavulanate 875-125 mg Tablet
1 tab PO Q12 10 Days Qty: 20 0RF
Referrals:
Ko Teresa DO [Family Provider] -
Activity Restrictions/Additional Instructions:
You have a large hematoma on you leg. This will gradually go away. The bruising will spread down you leg to your feet over the next few days. You should follow up with your doctor in a few days to have the area rechecked.
Interventions
Interventions:
*Risk Screen - Suicide Last Done: 07/23/23 15:59
*General Assessment Last Done: 07/23/23 15:59
*Neglect/Abuse Screening Last Done: 07/23/23 15:59
ED- Fall Risk Assessment Last Done: 07/23/23 19:58
*ED COVID-19 Vaccine History Last Done: 07/23/23 16:07
*Nursing Disposition Last Done: 07/23/23 19:58
ED-Musculoskeletal Assessment Last Done: 07/23/23 19:08
ED- Neurological Assessment Last Done: 07/23/23 16:07
Discharge Date and Time
Discharge Date/Time: 07/23/23 20:21
[2023-07-23] MEDS: DILAUDID 0.5 MG IV (17:47)
[2023-07-23 17:51] VITALS: BP 127/61
[2023-07-23 19:57] VITALS: BP 112/52
== END 2023-07-23 20:21 | disposition home or self-care (01) ==
LOC: EMR 15:54
PROVIDERS: EMERGENCY PHYSICIAN Emergency Medicine; FAMILY PHYSICIAN Student in an Organized Health Care Education/Training Program
DX: S80.12XA Contusion of left lower leg, initial encounter (principal); W19.XXXA Unspecified fall, initial encounter
CPT/HCPCS: 99284; 96374; 73590; 73610

== ENCOUNTER → 2023-08-03 08:16 | Outpatient (REF) | payer MEDICARE, SELFPAY | LOC: WOUND 08:16 | PROVIDERS: ATTENDING PHYSICIAN Surgery; FAMILY PHYSICIAN Student in an Organized Health Care Education/Training Program | DX: L97.829 Non-pressure chronic ulcer of other part of left lower leg with unspecified severity (principal); I87.2 Venous insufficiency (chronic) (peripheral); R73.03 Prediabetes; E66.01 Morbid (severe) obesity due to excess calories | CPT/HCPCS: 97597; 97598; 99213 ==

== ENCOUNTER → 2023-08-11 13:54 | Outpatient (REF) | payer MEDICARE, SELFPAY | LOC: WOUND 13:54 | PROVIDERS: ATTENDING PHYSICIAN Surgery; FAMILY PHYSICIAN Student in an Organized Health Care Education/Training Program | DX: L97.829 Non-pressure chronic ulcer of other part of left lower leg with unspecified severity (principal); I87.2 Venous insufficiency (chronic) (peripheral); R73.03 Prediabetes; E66.01 Morbid (severe) obesity due to excess calories | CPT/HCPCS: 99213 ==

== ENCOUNTER → 2023-08-18 14:02 | Outpatient (REF) | payer MEDICARE, SELFPAY | LOC: WOUND 14:02 | PROVIDERS: ATTENDING PHYSICIAN Surgery; FAMILY PHYSICIAN Student in an Organized Health Care Education/Training Program | DX: L97.829 Non-pressure chronic ulcer of other part of left lower leg with unspecified severity (principal); I87.2 Venous insufficiency (chronic) (peripheral); R73.03 Prediabetes; E66.01 Morbid (severe) obesity due to excess calories | CPT/HCPCS: 99213 ==

== ENCOUNTER → 2023-08-28 14:16 | Outpatient (REF) | payer MEDICARE, SELFPAY | LOC: WOUND 14:16 | PROVIDERS: ATTENDING PHYSICIAN Surgery; FAMILY PHYSICIAN Student in an Organized Health Care Education/Training Program | DX: L97.829 Non-pressure chronic ulcer of other part of left lower leg with unspecified severity (principal); I87.2 Venous insufficiency (chronic) (peripheral); R73.03 Prediabetes; E66.01 Morbid (severe) obesity due to excess calories | CPT/HCPCS: 99213 ==

== ENCOUNTER → 2023-09-05 11:57 | Outpatient (REF) | payer MEDICARE, SELFPAY | LOC: WOUND 11:57 | PROVIDERS: ATTENDING PHYSICIAN Surgery; FAMILY PHYSICIAN Student in an Organized Health Care Education/Training Program | DX: L97.829 Non-pressure chronic ulcer of other part of left lower leg with unspecified severity (principal); I87.2 Venous insufficiency (chronic) (peripheral); R73.03 Prediabetes; E66.01 Morbid (severe) obesity due to excess calories | CPT/HCPCS: 11042; 11045 ==

== ENCOUNTER → 2023-09-12 13:59 | Outpatient (REF) | payer MEDICARE, SELFPAY | LOC: WOUND 13:59 | PROVIDERS: ATTENDING PHYSICIAN Surgery; FAMILY PHYSICIAN Student in an Organized Health Care Education/Training Program | DX: L97.829 Non-pressure chronic ulcer of other part of left lower leg with unspecified severity (principal); I87.2 Venous insufficiency (chronic) (peripheral); R73.03 Prediabetes; E66.01 Morbid (severe) obesity due to excess calories | CPT/HCPCS: 11042; 11045 ==

== ENCOUNTER → 2023-09-22 13:48 | Outpatient (REF) | payer MEDICARE, SELFPAY | LOC: WOUND 13:48 | PROVIDERS: ATTENDING PHYSICIAN Surgery; FAMILY PHYSICIAN Student in an Organized Health Care Education/Training Program | DX: L97.829 Non-pressure chronic ulcer of other part of left lower leg with unspecified severity (principal); I87.2 Venous insufficiency (chronic) (peripheral); R73.03 Prediabetes; E66.01 Morbid (severe) obesity due to excess calories | CPT/HCPCS: 11042; 11045; 97605 ==

== ENCOUNTER → 2023-09-29 10:59 | Outpatient (REF) | payer MEDICARE, SELFPAY | LOC: WOUND 10:59 | PROVIDERS: ATTENDING PHYSICIAN Surgery; FAMILY PHYSICIAN Student in an Organized Health Care Education/Training Program | DX: L97.829 Non-pressure chronic ulcer of other part of left lower leg with unspecified severity (principal); I87.2 Venous insufficiency (chronic) (peripheral); R73.03 Prediabetes; E66.01 Morbid (severe) obesity due to excess calories | CPT/HCPCS: 11042; 11045; 97605 ==

== ENCOUNTER → 2023-10-13 10:52 | Outpatient (REF) | payer MEDICARE, SELFPAY | LOC: WOUND 10:52 | PROVIDERS: ATTENDING PHYSICIAN Surgery; FAMILY PHYSICIAN Student in an Organized Health Care Education/Training Program | DX: L97.829 Non-pressure chronic ulcer of other part of left lower leg with unspecified severity (principal); E66.01 Morbid (severe) obesity due to excess calories; I87.2 Venous insufficiency (chronic) (peripheral); R73.03 Prediabetes | CPT/HCPCS: 97605; 99213 ==

== ENCOUNTER → 2023-10-20 11:11 | Outpatient (REF) | payer MEDICARE, SELFPAY | LOC: WOUND 11:11 | PROVIDERS: ATTENDING PHYSICIAN Surgery; FAMILY PHYSICIAN Student in an Organized Health Care Education/Training Program | DX: L97.829 Non-pressure chronic ulcer of other part of left lower leg with unspecified severity (principal); I87.2 Venous insufficiency (chronic) (peripheral); R73.03 Prediabetes; E66.01 Morbid (severe) obesity due to excess calories | CPT/HCPCS: 11042; 97605; 99213 ==

== ENCOUNTER → 2023-12-05 11:40 | Outpatient (REF) | payer MEDICARE, SELFPAY ==
[2023-12-05 13:59] VITALS: BMI 53.5
== END ==
LOC: SDSPAT 11:40
PROVIDERS: ATTENDING PHYSICIAN Surgery Plastic and Reconstructive Surgery; FAMILY PHYSICIAN Student in an Organized Health Care Education/Training Program; OTHER PHYSICIAN Specialist
DX: S90.912D Unspecified superficial injury of left ankle, subsequent encounter (principal)
CPT/HCPCS: 36415; 93005

== ENCOUNTER 2023-12-06 06:16 | Day surgery (SDC) | payer MEDICARE, SELFPAY ==
[2023-12-06] VITALS (8 sets, daily range): BP systolic 120–138; BP diastolic 67–83; BMI 56.8
[2023-12-06] MEDS: NORMOSOL-R 1000 IV (08:50)
[2023-12-06 09:19] LABS: Hematocrit 35.2 % (37.0-47.0); Hemoglobin 12.1 g/dL (12.0-16.0); Mean Corp Hgb Conc. 34.4 g/dL (33.0-37.0); Mean Corpuscular Hgb 31.3 pg (27.0-31.0); Mean Corpuscular Volume 91.2 fL (81.0-99.0); Mean Platelet Volume 10.2 fL (7.4-10.4); Platelet Count 148 10^3/uL (130-400); Red Blood Cell Count 3.86 10^6/uL (4.20-5.40); White Blood Cell Count 4.7 10^3/uL (4.8-10.8)
[2023-12-06] MEDS: TYLENOL 1000 MG PO (09:36)
[2023-12-06 12:23] LABS: ALT (SGPT) 29 U/L (0-35); AST (SGOT) 35 U/L (14-36); Albumin 3.6 g/dl (3.5-5.0); Alkaline Phosphatase 74 U/L (38-126); Blood Urea Nitrogen 28 mg/dl (7-17); Calcium 10.5 mg/dl (8.4-10.2); Carbon Dioxide 30 mmol/L (22-30); Chloride 108 mmol/L (98-107); Estimated Creatinine Clearance 64 ml/min; Glucose 84 mg/dl (70-99); Potassium 4.3 mmol/L (3.5-5.1); Sodium 141 mmol/L (135-145); Total Bilirubin 1.1 mg/dl (0.2-1.3); Total Protein 6.5 g/dl (6.3-8.2); eGFR > 60.00
--- NOTE | 2023-12-06 12:38 | W.SUR.PREOP ---
Pre-Operative Surgical Note
-
I have examined this patient prior to the performance of the scheduled procedure.
The patient's condition is unchanged from the time of the current History and
Physical and the patient is able to undergo the scheduled procedure.
--- NOTE | 2023-12-06 14:01 | W.IMMPOSTOP ---
Surgical Immed Post Op Note
-
Primary Surgeon: DERRICK Bustamante MD
Assisting Surgeon:
Pre-op Diagnosis: left lower extremity wound
Post-op Diagnosis: same
Procedure Performed: wound bed prep, split-thickness skin graft left lower extremity wound
Anesthesia Type: General
Specimen / Cultures: none
Estimated Blood Loss: minimal
Complications: none
Operative Findings: as expected
--- NOTE | 2023-12-06 14:01 | OR.RPT ---
Operative Report
Operative Report
Date of surgery: 12/06/2023
Surgeon: DERRICK Bustamante MD
preoperative diagnosis: Left lower extremity wound
Postoperative diagnosis: Same
Procedure:
1. Split-thickness skin graft to left lower extremity, 5 x 5 cm
2. Wound bed prep left lower extremity 5 x 5 cm
3. Negative pressure wound VAC application 5 x 5 cm
Anesthesia: General
Complications: None
EBL: 3 cc
Indications for procedure: Patient is a 68-year-old female with a left lower extremity wound over the anterior aspect of her felder. She developed this wound and it was slow to progress. She saw me in consultation and a strict regimen of compression
was initiated. Edema was improved and the wound bed was amenable for skin grafting. As such a plan was made for skin grafting to the left lower extremity from the left thigh. Alternatives were reviewed including allowing the wound to heal in
secondarily. She decided to proceed with skin grafting. Risks include skin graft failure, donor site scar, infection, pain. She consented accordingly
Procedure in detail: Patient was identified preoperatively and the surgical site was confirmed to be the left lower extremity. All questions were answered and consents were confirmed. Patient was taken back to the operating room placed supine on
table. Anesthesia was induced and the patient was prepped and draped in the usual sterile fashion using Betadine and ChloraPrep solutions. Timeout for patient safety was performed was confirmed. Preoperative antibiotics have been administered and
a right SCD was in place. Procedure began with the injection of a 50-50 mixture 1% lidocaine with epinephrine and Marcaine into the left thigh donor site as well as the recipient site in the left felder. The wound was measured to be 5 x 5 cm and the
wound bed prep commenced with a 15 blade. Following this 5 x 5 cm area was marked out over the left thigh for skin graft donor site harvest. 13 thousandths of an inch thickness skin graft was harvested from the left thigh and placed on the left
lower extremity wound. Sutured in place with with a series of 4-0 chromic. Pie crusting was performed. Bacitracin and Adaptic were applied and then a DIGNA dressing was applied for negative pressure. Jose Manuel wrap was applied thereafter. All counts
were correct at the end the case, the patient tolerated well and was performed out complication. She was extubated taken the PACU for further care
== END 2023-12-06 15:35 | disposition home or self-care (01) ==
LOC: SDS 06:16
PROVIDERS: ATTENDING PHYSICIAN Surgery Plastic and Reconstructive Surgery; FAMILY PHYSICIAN Student in an Organized Health Care Education/Training Program
DX: L98.499 Non-pressure chronic ulcer of skin of other sites with unspecified severity (principal)
CPT/HCPCS: 15120; 15100; 80053; 85027

== ENCOUNTER 2024-04-13 22:37 | Inpatient (IN) | payer MEDICARE, SELFPAY ==
[2024-04-13 19:39] VITALS: BP 150/88
[2024-04-13 19:57] LABS: % Basophils 0.1 % (0-2); % Eosinophils 2.6 % (0-6); % Immature Granulocytes 0.6 % (0-0.5); % Lymphocytes 21.2 % (20.5-51.1); % Monocytes 9.5 % (1.7-9.3); Absolute Eosinophils 0.2 10^3/uL (0-0.7); Absolute Immature Granulocytes 0.1 10^3/uL (0-0.05); Absolute Lymphocytes 1.7 10^3/uL (1.2-3.4); Absolute Monocytes 0.8 10^3/uL (0.1-0.6); Absolute Neutrophils 5.4 10^3/uL (1.4-6.5); Hematocrit 35.1 % (37.0-47.0); Hemoglobin 11.5 g/dL (12.0-16.0); Mean Corp Hgb Conc. 32.8 g/dL (33.0-37.0); Mean Corpuscular Hgb 31.9 pg (27.0-31.0); Mean Corpuscular Volume 97.5 fL (81.0-99.0); Nucleated Red Blood Cells % 0 %; Platelet Count 155 10^3/uL (130-400); Red Cell Dist. Width 13.1 % (11.5-14.5); White Blood Cell Count 8.2 10^3/uL (4.8-10.8)
[2024-04-13 20:18] LABS: ALT (SGPT) 50 U/L (0-35); AST (SGOT) 49 U/L (14-36); Albumin 4.1 g/dl (3.5-5.0); Alkaline Phosphatase 81 U/L (38-126); Blood Urea Nitrogen 27 mg/dl (7-17); Calcium 10.2 mg/dl (8.4-10.2); Carbon Dioxide 28 mmol/L (22-30); Chloride 103 mmol/L (98-107); Glucose 101 mg/dl (70-99); Potassium 4.7 mmol/L (3.5-5.1); Sodium 139 mmol/L (135-145); Total Bilirubin 2.1 mg/dl (0.2-1.3); Total Protein 7.1 g/dl (6.3-8.2); eGFR > 60.00
[2024-04-13 20:49] VITALS: BMI 50.0
--- NOTE | 2024-04-13 21:43 | ED.SKININJ ---
HPI-Injury
General
Chief Complaint: Skin Problem
Source: patient
Exam Limitations: none
Time Seen by Provider: 04/13/24 21:37
Nursing documentation reviewed up to this point in time: agreed with
History of Present Illness-Injury
Is this injury a work related problem?: No
Is pt an associate of [facility]?: No
Initial Injury comments:
Patient to ED with complaint of increasing pain redness swelling to LLE. States lower leg began getting red a few days ago. States last PM she was at store and a table mat fell onto her leg. No wounds. Now with rapidly expanding erythema to lower
leg extending to medial thigh. Denies fever/chills. Difficulty ambulating due to pain. Has had cellulitis to this extremity in the past
Past History
Past History
ED Past Medical History: Cancer
ED Past Surgical History: Cholecystectomy, and Orthopedic
Social History
Tobacco: Non-smoker
Alcohol: None
Drug: None
Living: with family
Employment: Employed
Family History
Family History: Hypertension
Review of Systems
Review of Systems
Allergies reviewed?: Yes
All Other Systems: ROS reviewed and negative except as documented in HPI and ROS
Constitutional: Reports no symptoms
EENT: Reports no symptoms
Respiratory: Reports no symptoms
Cardiac: Reports no symptoms
ABD/GI: Reports no symptoms
: Reports no symptoms
Musculoskeletal: Reports other (pain to LLE)
Skin: Reports other (erythema and swelling to LLE extending to left medial thigh)
Neurological: Reports no symptoms
Psychiatric: Reports no symptoms
Phy Exam
General Physical Exam
General Presentation: well appearing and mild distress
General age: appears stated age
General Skin: warm and dry
General Habitus: normal
General Mental: alert
General Hydration: appears well hydrated
Musculoskeletal Exam
Musculoskeletal Exam: neuro vasc intact
Skin Exam
Skin Exam: other (erythema and swelling to LLE, extending to left medial thigh. Hot to touch. Painful ambulation)
Psychiatric Exam
Psychiatric Exam: normal mood/affect
Course
Orders/Labs/Results
Orders:
Orders
04/13/24 19:47
Complete Blood Count/With Diff Urgent
Comprehensive Metabolic Panel Urgent
04/13/24 21:42
US Periph Venous LOWER Ext LT Urgent
Comment:
Reason For Exam: erythema, swelling
04/13/24 21:53
Vancomycin [Vancocin] 2,000 mg 0.9% Sodium Chloride 500 ml [Nss] 500 ml IV NOW
04/13/24 22:29
Admit/Transfer Patient As Directed
Co-Sign Provider:
Level of Care: Inpatient admission
Assign to:: Medical/Surgical
Physician / Group: Hospitalist
Diagnosis: Cellulitis
Reason for Hospitalization: 2
Expected length of stay greater than two midnights?: Yes
ELOS- Estimated Length of Stay in days: 2
I certify the patient meets the requirements for IP care: Yes
PRN Pain Medication Management As Directed
May give lesser potent ordered pain med per pt: Yes
preference::
Protocol:: Medication orders for pain may be administered in a
manner that supports deferring to patient preference
when the pt is:
- Requesting an ordered lesser potent pain medication.
Least to most potent pain medications are defined
as: acetaminophen < NSAID < tramadol < opioids
(morphine, oxycodone, hydromorphone).
- Requesting a lesser dose of the same medication IF
ORDERED.
- Requesting a less intrusive route of administration
if both routes are prescribed by the provider (PO <
IV).
04/13/24 22:31
Code Status As Directed
Resuscitation Status: Full Code
04/14/24 01:05
Acetaminophen [Tylenol] 650 mg PO Q4HPRN PRN
Bisacodyl [Dulcolax] 10 mg RECTAL [id number] PRN
Cyclobenzaprine HCl [Flexeril] 10 mg PO Q8HPRN PRN
Docusate W/Senna [Senokot-S] 1 tablet PO BIDPRN PRN
Oxycodone Controlled Release [Oxycontin (Controlled Release)] 10 mg PO Q12H PRN
Oxycodone [Roxicodone] 15 mg PO Q6H PRN
Polyethylene Glycol Powder [Miralax] 17 grams PO DAILYPRN PRN
VANCOMYCIN Pharmacy to Dose [VANCOCIN Pharmacy to Dose] 1 each Pharmacy To Prepare [Call Pharmacy To Prepare] 0 ml IV PER PROTOCOL
04/14/24 01:05
Activity As Directed
Activity Level: With Assistance
Vital Signs As Directed
Frequency: Per unit guidelines
DX Deep Vein Thrombosis Video Routine
04/14/24 02:58
MRSA Screen Routine
NIRMAL Source: Nose
Specimen Description:
04/14/24 Breakfast
Regular
At Your Request: Full Participation
04/14/24 06:34
Basic Metabolic Panel IN AM
Complete Blood Count/No Diff IN AM
04/14/24 08:00
Atorvastatin [Lipitor] 20 mg PO DAILY
Escitalopram Oxalate [Lexapro] 20 mg PO DAILY
Losartan [Cozaar] 100 mg PO DAILY
Metoprolol Xl [Toprol Xl] 100 mg PO DAILY
NIFEdipine EXTENDED RELEASE [Procardia Xl (Extended Release)] 30 mg PO DAILY
Oxybutynin Chloride [Ditropan] 5 mg PO DAILY
Spironolactone [Aldactone] 25 mg PO DAILY
04/14/24 20:00
Enoxaparin Sodium [Lovenox] 40 mg SC Q12
04/14/24 22:00
Anastrozole [Arimidex] 1 mg PO HS
Gabapentin [Neurontin] 300 mg PO HS
Abnormal Lab Results
04/13/24
19:47
RBC 3.60 L 10^6/uL
(4.20-5.40)
Hgb 11.5 L g/dL
(12.0-16.0)
Hct 35.1 L %
(37.0-47.0)
MCH 31.9 H pg
(27.0-31.0)
MCHC 32.8 L g/dL
(33.0-37.0)
Abs Immat Gran (auto) 0.1 H 10^3/uL
(0-0.05)
Absolute Monos (auto) 0.8 H 10^3/uL
(0.1-0.6)
Immature Gran % 0.6 H %
(0-0.5)
Monocytes % 9.5 H %
(1.7-9.3)
BUN 27 H mg/dl
(7-17)
Glucose 101 H mg/dl
(70-99)
Total Bilirubin 2.1 H mg/dl
(0.2-1.3)
AST 49 H U/L
(14-36)
ALT 50 H U/L
(0-35)
04/13/24 19:47
04/13/24 19:47
Vital Signs
Initial and Last Documented VS:
Initial Vital Signs
Temp Pulse Resp BP Pulse Ox
98.4 F 92 18 150/88 93
04/13/24 19:39 04/13/24 19:39 04/13/24 19:39 04/13/24 19:39 04/13/24 19:39
Last Documented Vital Signs
Temp Pulse Resp BP Pulse Ox
98.3 F 64 16 139/82 96
04/16/24 07:49 04/16/24 07:49 04/16/24 07:49 04/16/24 07:49 04/16/24 08:30
*Critical Care Note
Total Time (30-74mins, 75-104mins- exclusive of procedures): Not Applicable
ED Attending Note
-
Portions of this chart may have been created with voice recognition software.� Occasional wrong word or��sound alike� substitutions may have occurred due to the inherent limitations of voice recognition software.
Discharge Plan
Departure
Patient Disposition: Admit
Date of Disposition: 04/13/24
Time of Disposition: 21:47
Presentation/result/management discussed w/ accepting MD/DO: Hospitalist
Patient with high blood pressure during this ER visit?: No
Condition: Fair
Covid-19: Not Applicable
Discharge Problem:
Cellulitis of left leg
Interventions
Interventions:
*Risk Screen - Suicide Last Done: 04/13/24 19:37
*General Assessment Last Done: 04/13/24 19:39
*Neglect/Abuse Screening Last Done: 04/13/24 19:39
ED- Fall Risk Assessment Last Done: 04/13/24 20:50
*ED COVID-19 Vaccine History Last Done: 04/13/24 20:49
*Nursing Disposition Last Done: 04/14/24 01:00
ED-Skin Assessment Last Done: 04/13/24 20:50
Discharge Date and Time
Discharge Date/Time: 04/14/24 01:01
[2024-04-13] MEDS: VANCOCIN 540 MG IV (22:04)
--- NOTE | 2024-04-13 22:22 | HPS.HSE ---
Family Physician
-
Family Physician: Ko Teresa, DO
Chief Complaint
-
Left lower extremity redness and swelling
History of Present Illness
Patient is a 68-year-old female with past medical history of hypertension, obesity and chronic pain who presents to the emergency department with acute episode of left lower extremity swelling and redness.
Patient with that she had a traumatic experience with a table mat falling on her legs resulting in redness of the medial left thigh and the lower left leg. She said that initially there was no discomfort but the redness started to spread rapidly.
She was seen by pain doctor who demarcated the area of redness. When the redness spread beyond the demarcated area she decided come to the emergency department. She has not had any fevers or chills. She reports prior history of cellulitis that is
always treated with IV antibiotics due to rapid spread and decompensation.
Currently in the ED she was afebrile blood pressure was 150/80 with a pulse of 98. There is no leukocytosis hemoglobin was stable normal platelet count. BUN electrolytes were within normal limits.
Medical History
Past Medical History
Past Medical History: Reports HTN and Hypercholesterolemia
Past Surgical History: Reports Cholecystectomy and Orthopedic
Social History
Tobacco: Non-smoker
Alcohol: None
Drug: None
Personal: Single
Living: With Family
Employment: Not Employed
Family History
Family History: Not pertinent
Allergies / Home Medications
Allergies reflects when Allergies were last updated in [employer].
Home Medications with original date entered in [employer]
Allergy/Medication List:
Allergies
Allergy/AdvReac Type Severity Reaction Status Date / Time
adhesive Allergy Itching Verified 04/13/24 20:53
Home Medications
anastrozole 1 mg tablet 1 mg PO HS Hormonal Agent 09/04/16
atorvastatin 20 mg tablet 20 mg PO DAILY High Cholesterol 10/30/22
escitalopram oxalate 20 mg tablet (Lexapro) 20 mg PO DAILY Mental Health/Anxiety 10/30/22
gabapentin 300 mg capsule 300 mg PO HS Neurological Condition 10/30/22
losartan 100 mg tablet 100 mg PO DAILY Blood Pressure 10/30/22
metoprolol succinate 100 mg tablet,extended release 24 hr 100 mg PO DAILY Blood Pressure 10/31/22
nifedipine 30 mg tablet,extended release 30 mg PO DAILY #30 tabs 11/04/22
spironolactone 25 mg tablet (Aldactone) 25 mg PO DAILY Fluid Retention/Swelling #30 tabs 11/05/22
cyclobenzaprine 10 mg tablet 10 mg PO PRN PRN muscle spasm 07/15/23
oxybutynin chloride 5 mg tablet 5 mg PO DAILY Urinary Issue 07/15/23
evening primrose oil 500 mg capsule 500 mg PO BID 12/05/23
krill oil 500 mg capsule 500 mg PO DAILY 12/05/23
multivitamin-ferrous fumarate-folic acid 18 mg-400 mcg tablet (Centrum Women) 1 tab PO DAILY 12/05/23
oxycodone 10 mg tablet,crush resistant,extended release 12 hr (OxyContin) 10 mg PO Q12H PRN discomfort 12/05/23
oxycodone 15 mg tablet 15 mg PO Q6H PRN discomfort 12/05/23
semaglutide (weight loss) 0.25 mg/0.5 mL subcutaneous pen injector (Wegovy) 0.25 mg SC QWEEK 12/06/23
Review of Systems
-
History Source: Patient
Constitutional: Reports No Symptoms
EENT: Reports No Symptoms
Respiratory: Reports No Symptoms
Cardiac: Reports No Symptoms
Abdomen/GI: Reports No Symptoms
: Reports No Symptoms
Musculoskeletal: Reports No Symptoms
Skin: Reports Rash
Neurological: Reports No Symptoms
Endocrine: Reports No Symptoms
Hematologic/Lymphatic: Reports No Symptoms
Psych: Reports No Symptoms
Physical Exam
Vital Signs
Vital Signs
Temp Pulse Resp BP Pulse Ox
98.4 F 92 18 150/88 93
04/13/24 19:39 04/13/24 19:39 04/13/24 19:39 04/13/24 19:39 04/13/24 19:39
Physical Exam
General: Well Developed, Well Nourished, No Apparent Distress and Comfortable
HEENT: NormoCephalic, Anicteric and Moist mucous membranes
Respiratory: Clear
Cardiac: S1/S2 and Regular Rhythm
GI: Soft
Rectal: Brown
Genito-urinary: Deferred by me
Musculoskeletal: No Clubbing, No Cyanosis and No Edema
Skin: Rash
Neuro: AO x 3
Hematologic/Lymphatic: No Lymphadenopathy
Psych: Calm
Laboratory Results
-
04/13/24 19:47
04/13/24 19:47
Laboratory Results
Total Bilirubin 2.1 mg/dl (0.2-1.3) H 04/13/24 19:47
AST 49 U/L (14-36) H 04/13/24 19:47
ALT 50 U/L (0-35) H 04/13/24 19:47
Alkaline Phosphatase 81 U/L (38-126) 04/13/24 19:47
Data Reviewed
-
Lab Data: Labs Reviewed by me
Old Records: Reviewed
Impression/Plan
-
IMPRESSION:
PLAN:
1. Cellulitis - h/o recurrent cellulitis
- admit to med/surg
- LLE u/s to r/o dvt pending
- mrsa swab
- iv vancomycin for now
- keep legs elevated.
HTN and pain management per home regimen
DVT PPX - lovenox sq
Code status - full
[2024-04-13 22:35] VITALS: BP 120/51
[2024-04-14 01:20] VITALS: BP 131/76; BMI 48.1
[2024-04-14] MEDS: ROXICODONE 15 MG PO ×4 (01:50→23:05)
[2024-04-14] MEDS: TYLENOL 650 MG PO (02:48)
[2024-04-14 06:44] LABS: Hematocrit 30.6 % (37.0-47.0); Hemoglobin 10.6 g/dL (12.0-16.0); Mean Corp Hgb Conc. 34.6 g/dL (33.0-37.0); Mean Corpuscular Hgb 33.3 pg (27.0-31.0); Mean Corpuscular Volume 96.2 fL (81.0-99.0); Mean Platelet Volume 9.9 fL (7.4-10.4); Platelet Count 118 10^3/uL (130-400); Red Blood Cell Count 3.18 10^6/uL (4.20-5.40); White Blood Cell Count 7.1 10^3/uL (4.8-10.8)
[2024-04-14 07:19] VITALS: BP 116/66
--- NOTE | 2024-04-14 07:36 | PHA.VAN.IN ---
Assessment
- Assessment
Renal Function: Appears similar to baseline
Historical Micro: History of MRSA infection
AUC Dosing Plan
- Dosing Variables
Dosing Weight (kg): 104.326
Dosing CrCl (ml/min): 99
Vd coefficient (L/kg): 0.5
- Empiric Dosing
Initial / Loading Dose: Vanco 2000mg Loading dose given 04/13/24 at 2204
Maintenance Regimen: Vanco 1000mg Q12H starting 04/14/24 at 1800
Estimated AUC (mcg*h/mL): 462
Estimated Peak (mcg*h/mL): 29.7
Estimated Trough (mcg/ml): 11.4
Estimated Half Life (H): 15.5
- Monitoring
No levels ordered at this time: Consider in the next few days
Pharmacokinetics Vancomycin I
- -
Patient Age: 68
Patient Sex: Female
Vancomycin Day #: 2
Indication: Skin And Soft Tissue
Requesting Provider: Cruz Mae
Pertinent Antimicrobial Allergies:
NKDA
Height / Weight:
Height 4 ft 10 in
Actual Weight 104.326 kg
Pertinent Past Medical History: PNA, Celluitis in right thigh
- Vital Signs / Lab Results
Temp Pulse Resp BP Pulse Ox
99.6 F 88 20 131/76 96
04/14/24 03:56 04/14/24 01:20 04/14/24 01:20 04/14/24 01:20 04/14/24 02:00
Lab Results - Hematology
04/13/24 04/14/24
19:47 06:34
WBC 8.2 7.1
Lab Results - Chemistry
04/13/24
19:47
BUN 27 H
Creatinine 0.9
Albumin 4.1
[2024-04-14 07:37] LABS: Blood Urea Nitrogen 20 mg/dl (7-17); Calcium 9.4 mg/dl (8.4-10.2); Carbon Dioxide 24 mmol/L (22-30); Chloride 105 mmol/L (98-107); Estimated Creatinine Clearance 80 ml/min; Glucose 98 mg/dl (70-99); Potassium 3.6 mmol/L (3.5-5.1); Sodium 139 mmol/L (135-145); eGFR > 60.00
[2024-04-14] MEDS: LEXAPRO 20 MG PO (08:18)
[2024-04-14] MEDS: COZAAR 100 MG PO (08:18)
[2024-04-14] MEDS: TOPROL XL 100 MG PO (08:18)
[2024-04-14] MEDS: LIPITOR 20 MG PO (08:18)
[2024-04-14] MEDS: PROCARDIA XL (EXTENDED RELEASE) 30 MG PO (08:18)
[2024-04-14] MEDS: ALDACTONE 25 MG PO (08:18)
[2024-04-14] MEDS: DITROPAN 5 MG PO (08:18)
--- NOTE | 2024-04-14 11:23 | W.PN.HOSP.TC ---
Today's Communication/Plan
-
Monitor vital signs
see plan
Continue with vancomycin
Monitor LFTs, platelets
pain control
Assessment / Plan
Assessment / Plan
General: Well Developed, Well Nourished, No Apparent Distress and Comfortable
HEENT: NormoCephalic, Anicteric and Moist mucous membranes
Respiratory: Clear
Cardiac: S1/S2 and Regular Rhythm
GI: Soft
Musculoskeletal: No Edema
Neuro: AO x 3
Psych: Calm
Cellulitis - h/o recurrent cellulitis
hx of LLE wound with graft; monitor
- LLE u/s to r/o dvt neg for DVT
- mrsa swab
- iv vancomycin for now
Thrombocytopenia
Monitor
DREW
On CPAP, patient to bring her device today
Mild intermittent asthma
Morbid obesity due to excess calories
Chronic pain syndrome/chronic opioid dependence -due to chronic low back pain
cw pain meds
Mild LFT elevation
Monitor, denies any abdominal pain
Previous ultrasound suggestive of fatty infiltration of the liver
HTN
cw home meds
DVT PPX - lovenox sq
Code status - full
Anticipated Discharge: 24 - 48 hours
Subjective/Interval History
-
Date of Service: April 14, 2024
denies nausea
Objective Data
-
Labs:
Laboratory Results
04/14/24
06:34
WBC 7.1
Hgb 10.6 L
Hct 30.6 L
Plt Count 118 L D
Sodium 139
Potassium 3.6
Chloride 105
Carbon Dioxide 24
BUN 20 H
Creatinine 0.7
Glucose 98
Calcium 9.4
Vital Signs:
Vital Signs
Temp Pulse Resp BP Pulse Ox
98.8 F 75 20 116/66 95
04/14/24 07:19 04/14/24 08:18 04/14/24 07:19 04/14/24 08:18 04/14/24 07:19
I&O
04/13/24 04/14/24 04/15/24
06:59 06:59 06:59
Intake Total 200 / 200
Balance 200 / 200
--- NOTE | 2024-04-14 12:56 | CM ---
Reviewed chart, met with patient to obtain information for assessment. Patient stated that she lives in a one story home with one step to enter with her sister and mother. She described herself as independent with her ADLs, personal care, dressing
and bathing. She ambulates with the assistance of a cane. She can do her own ice cream maker, cook, clean and do laundry. Her sister is supportive and helps. Patient drives and can get herself to all of her appointments and does all of her
shopping.
Besides her cane, she also has a CPAP that she uses at night.
Patient has had VN through in the past. She stated that she would be agreeable to a VN but no wound care or wound vac.
She has not been to a SNF.
Patient does outpatient PT at [facility].
Patient has a prescription plan and uses, [facility] for all of her medications.
Patient's PCP is, Dr. Teresa.
Patient stated that she would be agreeable to VN at discharge if indicated but would like to return home when stable.
Plan: Case management will continue to follow and assist with discharge planning. Home with VN through if indicated.
[2024-04-14] MEDS: SENOKOT-S 1 TABLET PO (14:24)
[2024-04-14 15:00] VITALS: BP 117/63
[2024-04-14] MEDS: MIRALAX 17 GRAMS PO (15:23)
[2024-04-14] MEDS: VANCOCIN 200 IV (17:05)
--- NOTE | 2024-04-14 18:27 | PTCARENOTE ---
Pt family member brought in semaglutide. MD made aware, instructed not to administer. Medication walked to pharmacy to store. Will continue to monitor.
[2024-04-14] MEDS: LOVENOX 40 MG SC (20:44)
[2024-04-14] MEDS: ARIMIDEX 1 MG PO (20:45)
[2024-04-14] MEDS: NEURONTIN 300 MG PO (20:45)
[2024-04-14] MEDS: OXYCONTIN (CONTROLLED RELEASE) 10 MG PO (21:00)
[2024-04-14 23:20] VITALS: BP 143/82
[2024-04-15] MEDS: VANCOCIN 200 IV ×2 (05:01→17:26)
[2024-04-15 06:00] VITALS: BMI 47.5
[2024-04-15 07:20] VITALS: BP 147/84
[2024-04-15] MEDS: TOPROL XL 100 MG PO (08:44)
[2024-04-15] MEDS: DITROPAN 5 MG PO (08:44)
[2024-04-15] MEDS: LOVENOX 40 MG SC ×2 (08:44→21:15)
[2024-04-15] MEDS: LEXAPRO 20 MG PO (08:45)
[2024-04-15] MEDS: LIPITOR 20 MG PO (08:45)
[2024-04-15] MEDS: ALDACTONE 25 MG PO (08:45)
[2024-04-15] MEDS: COZAAR 100 MG PO (08:45)
[2024-04-15] MEDS: ROXICODONE 15 MG PO ×3 (08:47→23:28)
--- NOTE | 2024-04-15 08:52 | PTCARENOTE ---
Lab informed this RN of critical lab result, result= positive MRSA screen in nose. made aware. Private bed requested.
--- NOTE | 2024-04-15 08:52 | PTCARENOTE ---
Lab informed this RN of critical lab result, result= positive MRSA screen in nose. made aware. Per ID, pt cleared of MRSA precaution.
[2024-04-15 08:55] LABS: % Basophils 0.2 % (0-2); % Eosinophils 4.6 % (0-6); % Immature Granulocytes 0.3 % (0-0.5); % Lymphocytes 29.6 % (20.5-51.1); % Monocytes 12.4 % (1.7-9.3); % Neutrophils 52.9 % (42.2-75.2); Absolute Eosinophils 0.3 10^3/uL (0-0.7); Absolute Lymphocytes 1.7 10^3/uL (1.2-3.4); Absolute Monocytes 0.7 10^3/uL (0.1-0.6); Absolute Neutrophils 3.1 10^3/uL (1.4-6.5); Hematocrit 31.9 % (37.0-47.0); Hemoglobin 10.6 g/dL (12.0-16.0); Mean Corp Hgb Conc. 33.2 g/dL (33.0-37.0); Mean Corpuscular Hgb 32.5 pg (27.0-31.0); Mean Corpuscular Volume 97.9 fL (81.0-99.0); Mean Platelet Volume 10.4 fL (7.4-10.4); Nucleated Red Blood Cells % 0 %; Platelet Count 143 10^3/uL (130-400); Red Blood Cell Count 3.26 10^6/uL (4.20-5.40); White Blood Cell Count 5.8 10^3/uL (4.8-10.8)
[2024-04-15 09:03] LABS: Blood Urea Nitrogen 14 mg/dl (7-17); Calcium 9.6 mg/dl (8.4-10.2); Carbon Dioxide 27 mmol/L (22-30); Chloride 105 mmol/L (98-107); Estimated Creatinine Clearance 80 ml/min; Glucose 89 mg/dl (70-99); Potassium 3.4 mmol/L (3.5-5.1); Sodium 139 mmol/L (135-145); eGFR > 60.00
[2024-04-15] MEDS: PROCARDIA XL (EXTENDED RELEASE) 30 MG PO (09:19)
--- NOTE | 2024-04-15 09:40 | PHA.VAN.FU ---
Vancomycin Assessment / Plan
- Assessment
Renal Function: Stable
WBC's are: WNL
In the past 24 hrs, patient has been: Afebrile
- Dosing Plan
Continue: Vanc 1000mg Q12H
- Monitoring Plan
No level(s) ordered at this time: consider levels in next few days
- Follow Up
Pharmacy will continue to follow.
Vancomycin Follow UP
- -
Patient Age: 68
Patient Sex: Female
Vancomycin Day #: 2
Indication: Skin And Soft Tissue
Requesting Provider: Cruz Mae
Pertinent Antimicrobial Allergies:
NKDA
Height / Weight:
Height 4 ft 10 in
Actual Weight 102.965 kg
Pertinent Past Medical History: PNA, Celluitis in right thigh
- Vital Signs / Lab Results
Temp Pulse Resp BP Pulse Ox
97.9 F 72 16 130/79 92
04/15/24 07:20 04/15/24 09:19 04/15/24 07:20 04/15/24 09:19 04/15/24 07:20
Lab Results - Hematology
04/13/24 04/14/24 04/15/24
19:47 06:34 08:17
WBC 8.2 7.1 5.8
Lab Results - Chemistry
04/13/24 04/14/24 04/15/24
19:47 06:34 08:16
BUN 27 H 20 H 14
Creatinine 0.9 0.7 0.7
Estimated Creat Clear 80 80
Albumin 4.1
Microbiology Results
04/14/24 02:58 MRSA Screen - Final
Nose Staph aureus MRSA
--- NOTE | 2024-04-15 10:12 | W.PN.HOSP.TC ---
Today's Communication/Plan
-
see bold
Assessment / Plan
Assessment / Plan
Gen: NAD, AAOx3.
Eyes: EOMI, PERRLA, no scleral icterus.
Neck: supple.
CV: RRR, +S1/S2, no m/r/g.
Resp: CTAB, no rales, wheezes, or rhonchi.
Abd: +BS, soft, NT, ND
Skin: LLE cellulitis
Neuro: CN 2-12 intact, non-focal.
Psych: Normal mood and affect.
Cellulitis:
-due to LLE wound with graft
-h/o recurrent cellulitis
-LLE U/S NEG for DVT
-cont IV vancomycin
Other problems:
Thrombocytopenia, resolved
DREW: cont CPAP
Mild intermittent asthma
Morbid obesity due to excess calories
Chronic pain syndrome/chronic opioid use with dependence due to chronic low back pain
Hypokalemia: PO K
Mild LFT elevation: trend, prior U/S suggestive of fatty infiltration of the liver
Essential HTN: Continue losartan/BB/Procardia XL/Aldactone
FULL/Lovenox
Anticipated Discharge: Within 24 hours
Subjective/Interval History
-
Date of Service: April 15, 2024
No new complaints.
Objective Data
-
Labs:
Laboratory Results
04/15/24 04/15/24
08:16 08:17
WBC 5.8
Hgb 10.6 L
Hct 31.9 L
Plt Count 143 D
Sodium 139
Potassium 3.4 L
Chloride 105
Carbon Dioxide 27
BUN 14
Creatinine 0.7
Glucose 89
Calcium 9.6
Vital Signs:
Vital Signs
Temp Pulse Resp BP Pulse Ox
97.9 F 72 16 130/79 92
04/15/24 07:20 04/15/24 09:19 04/15/24 07:20 04/15/24 09:19 04/15/24 07:20
I&O
04/14/24 04/15/24 04/16/24
06:59 06:59 06:59
Intake Total 200 / 200 1100 / 1100
Balance 200 / 200 1100 / 1100
[2024-04-15 10:53] LABS: ALT (SGPT) 37 U/L (0-35); AST (SGOT) 31 U/L (14-36); Albumin 3.2 g/dl (3.5-5.0); Alkaline Phosphatase 73 U/L (38-126); Direct Bilirubin 0.3 mg/dl (0.0-0.4); Total Bilirubin 1.7 mg/dl (0.2-1.3); Total Protein 5.9 g/dl (6.3-8.2)
[2024-04-15] MEDS: KCL 40 MEQ PO (10:56)
--- NOTE | 2024-04-15 12:30 | PTCARENOTE ---
Infection prevention informed this RN to assign pt to private room. Pt reassigned to room 335.
[2024-04-15 15:12] VITALS: BP 109/68
[2024-04-15] MEDS: TYLENOL 650 MG PO (16:11)
[2024-04-15] MEDS: ARIMIDEX 1 MG PO (21:27)
[2024-04-15] MEDS: NEURONTIN 300 MG PO (21:27)
[2024-04-15 23:00] VITALS: BP 135/78
[2024-04-16] MEDS: VANCOCIN 200 IV (05:35)
--- NOTE | 2024-04-16 07:47 | W.PN.HOSP.TC ---
Addendum entered and electronically signed by Tayo Trevino MD 04/16/24 08:39:
Correction: d/c on Keflex as Bactrim DS has interactions with many the patient's other medications.
I discussed the entire discharge plan with the patient. I specifically stated that should her cellulitis worsen that she needs to come back to the hospital immediately. I specifically stated that worsening would consist of pain, or worsening
erythema/redness, fever, or any other concerning symptoms. I specifically stated that should her cellulitis worsen and she not seek medical attention that it could lead to 'loss of life or limb.' The patient verbally acknowledged understanding and
agreement with this.
Original Note:
Today's Communication/Plan
-
d/c
Assessment / Plan
Assessment / Plan
Gen: NAD, AAOx3.
Eyes: EOMI, PERRLA, no scleral icterus.
Neck: supple.
CV: remains RRR, +S1/S2, no m/r/g.
Resp: remains CTAB, no rales, wheezes, or rhonchi.
Abd: +BS, soft, NT, ND
Skin: LLE cellulitis, similar to yesterday
Neuro: CN 2-12 intact, non-focal.
Psych: Normal mood and affect.
Cellulitis:
-due to LLE wound with graft
-h/o recurrent cellulitis
-LLE U/S NEG for DVT
-was on IV vancomycin, d/c on bactrim DS
Other problems:
Thrombocytopenia, resolved
DREW: cont CPAP
Mild intermittent asthma
Morbid obesity due to excess calories: Affects all aspects of care and notably increases the risk for recurrent lower extremity cellulitis
Chronic pain syndrome/chronic opioid use with dependence due to chronic low back pain
Hypokalemia: PO K
Mild LFT elevation: trend, prior U/S suggestive of fatty infiltration of the liver
Essential HTN: Continue losartan/BB/Procardia XL/Aldactone
FULL/Lovenox
Total time spent on d/c = 31 min. This included today's physical exam, progress note, review of laboratory and diagnostic data, preparation of discharge documents and prescriptions, and discussions about the pt's hospital course and discharge plan
with the patient and other medical photographer involved in the patient's care.
Anticipated Discharge: Today
Subjective/Interval History
-
Date of Service: April 16, 2024
No new complaints.
Objective Data
-
Vital Signs:
Vital Signs
Temp Pulse Resp BP Pulse Ox
97.9 F 63 18 135/78 96
04/15/24 23:00 04/15/24 23:00 04/15/24 23:00 04/15/24 23:00 04/15/24 23:00
I&O
04/15/24 04/16/24 04/17/24
06:59 06:59 06:59
Intake Total 1100 / 1100 1400 / 1400
Balance 1100 / 1100 1400 / 1400
[2024-04-16 07:49] VITALS: BP 139/82
[2024-04-16] MEDS: LIPITOR 20 MG PO (08:25)
[2024-04-16] MEDS: ALDACTONE 25 MG PO (08:25)
[2024-04-16] MEDS: LEXAPRO 20 MG PO (08:25)
[2024-04-16] MEDS: TOPROL XL 100 MG PO (08:25)
[2024-04-16] MEDS: COZAAR 100 MG PO (08:25)
[2024-04-16] MEDS: PROCARDIA XL (EXTENDED RELEASE) 30 MG PO (08:25)
[2024-04-16] MEDS: DITROPAN 5 MG PO (08:26)
[2024-04-16] MEDS: LOVENOX 40 MG SC (08:26)
[2024-04-16 08:28] LABS: ALT (SGPT) 35 U/L (0-35); AST (SGOT) 29 U/L (14-36); Albumin 3.3 g/dl (3.5-5.0); Alkaline Phosphatase 70 U/L (38-126); Blood Urea Nitrogen 16 mg/dl (7-17); Calcium 10.3 mg/dl (8.4-10.2); Carbon Dioxide 26 mmol/L (22-30); Chloride 109 mmol/L (98-107); Estimated Creatinine Clearance 62 ml/min; Glucose 83 mg/dl (70-99); Sodium 141 mmol/L (135-145); Total Bilirubin 1.1 mg/dl (0.2-1.3); Total Protein 6.1 g/dl (6.3-8.2); eGFR > 60.00
--- NOTE | 2024-04-16 09:51 | VNURNOTE ---
Home Health Liaison spoke with patient to discuss [facility] nurse visits, schedule and homebound status. Patient is agreeable and understands that visits at home will be 2-3 x per week to assess and teach medical management. Patient is aware that [facility]
will contact them for start of care in 1-2 days after discharge from . [facility] referral completed in [facility].
--- NOTE | 2024-04-16 10:10 | CM ---
CM reviewed chart and noted dc order
Bedside meeting with pt to review planning
Referral made to [facility], VN order on chart
IMM verbally completed- copy provided
Pt already called for ride home
Discharge Disposition- home with [facility]- family transport
--- NOTE | 2024-04-16 13:35 | W.DCSUMMARY ---
Discharge Summary
Discharge Data
Date of Admission: 04/13/24
Date of Discharge: 04/16/24
-
Pending Results: No
Hospital Course
Primary diagnoses:
Left lower extremity cellulitis
Secondary diagnoses:
Thrombocytopenia, resolved
Obstructive sleep apnea
Mild intermittent asthma
Morbid obesity due to excess calories
Chronic pain syndrome/chronic opioid use with dependence due to chronic low back pain
Hypokalemia
Essential hypertension
Consultants:
None
Imaging:
LLE U/S: No evidence of deep venous thrombosis in the left lower extremity
Hospital course: 68-year-old female who presented with a chief complaint of left lower extremity redness and swelling as outlined in the H&P done on admission. The patient was diagnosed with cellulitis. She had a history of recurrent cellulitis.
Left lower extremity ultrasound was negative for DVT. She was treated with IV vancomycin with improvement in her cellulitis. She was discharged on Keflex.
I discussed the entire discharge plan with the patient. I specifically stated that should her cellulitis worsen that she needs to come back to the hospital immediately. I specifically stated that worsening would consist of pain, or worsening
erythema/redness, fever, or any other concerning symptoms. I specifically stated that should her cellulitis worsen and she not seek medical attention that it could lead to 'loss of life or limb.' The patient verbally acknowledged understanding and
agreement with this.
Discharge Plan
-
Patient Disposition: Home (Routine Discharge)
Discharge Diagnosis/Procedures: Left lower extremity cellulitis
Condition: Good
Diet: As tolerated
Activity: As tolerated
Driving Restrictions: As prior to admission
Referrals:
Ko Teresa DO [Family Provider] - in less than 1 week
Prescriptions:
New
cephalexin 500 mg capsule
500 mg PO Q6H 10 Days Qty: 40 0RF
Continued
anastrozole 1 MG tablet
1 mg PO HS
atorvastatin 20 mg Tablet
20 mg PO DAILY
gabapentin 300 mg Capsule
300 mg PO HS
losartan 100 mg Tablet
100 mg PO DAILY
escitalopram oxalate [Lexapro] 20 mg Tablet
20 mg PO DAILY
metoprolol succinate 100 mg Tablet Extended Release 24 Hr
100 mg PO DAILY
nifedipine 30 mg Tablet Extended Release
30 mg PO DAILY Qty: 30 0RF
spironolactone [Aldactone] 25 mg Tablet
25 mg PO DAILY Qty: 30 0RF
cyclobenzaprine 10 mg Tablet
10 mg PO PRN PRN (Reason: muscle spasm)
oxybutynin chloride 5 mg Tablet
5 mg PO DAILY
evening primrose oil 500 mg Capsule
500 mg PO BID
oxycodone 15 mg Tablet
15 mg PO Q6H PRN (Reason: discomfort)
Centrum Women 18-400 mg-mcg Tablet
1 tab PO DAILY
krill oil 500 mg Capsule
500 mg PO DAILY
oxycodone [OxyContin] 10 mg Tablet,Oral Only,Ext.Rel.12 Hr
10 mg PO Q12H PRN (Reason: discomfort)
Patient Comments:
A few weeks ago per patient.
Wegovy 0.25 mg/0.5 mL Pen Injector
0.25 mg SC QWEEK
Discharge Orders:
Discharge Patient (As Directed); Ordered 04/16/24
Ordered By: Tayo Trevino
Discharge Date and Time
Discharge Date/Time: 04/16/24 12:03
Print Language: GEORGIAN
== END 2024-04-16 12:03 | disposition home health service (06) | DRG 603 ==
LOC: 3 WEST ACU 22:37
PROVIDERS: Internal Medicine; ADMITTING PHYSICIAN Internal Medicine; ATTENDING PHYSICIAN Internal Medicine; EMERGENCY PHYSICIAN Emergency Medicine; FAMILY PHYSICIAN Student in an Organized Health Care Education/Training Program
DX: L03.116 Cellulitis of left lower limb (principal); Z68.42 Body mass index [BMI] 45.0-49.9, adult; I10 Essential (primary) hypertension; D69.6 Thrombocytopenia, unspecified; G47.33 Obstructive sleep apnea (adult) (pediatric); J45.20 Mild intermittent asthma, uncomplicated; E66.01 Morbid (severe) obesity due to excess calories; G89.4 Chronic pain syndrome; E87.6 Hypokalemia
CPT/HCPCS: 80048; 80053; 82248; 85025; 85027; 87070; 87147; 93971; 96365; 96366; 99284

== ENCOUNTER → 2024-06-25 12:29 | Outpatient (REF) | payer MEDICARE, SELFPAY | LOC: HWRAD 12:29 | PROVIDERS: ATTENDING PHYSICIAN Orthopaedic Surgery Hand Surgery; FAMILY PHYSICIAN Student in an Organized Health Care Education/Training Program | DX: M25.512 Pain in left shoulder (principal) | CPT/HCPCS: 73200 ==

== ENCOUNTER 2024-10-10 13:40 | Inpatient (IN) | payer MEDICARE, SELFPAY ==
--- NOTE | 2024-09-23 14:03 | VNURNOTE ---
Addendum entered by Sylvia Strong RN 10/02/24 14:04:
Chart further reviewed, PA's note reviewed. Per Keke SOLOMON's note, patient may need home care. Will be decided post op. Patient status is same day surgery as of the date of this note. Referral for [facility] placed in [facility].
Original Note:
Chart reviewed. Rec'ed updates from Cesilia Christian in [facility]. She had concerns regarding if pt will have enough care at home post operatively. Call placed to patient. She confirmed she lives with her elderly mother and sister. After surgery, her sister
will continue to care for her mother. Explained [facility] services: short term, intermittent, skilled. Patient stated she is planning on resuming PT with Stephania ([facility]ri[facility] Lara). She thinks PT may be in-home. Advised her to investigate
[facility] services. Offered to email pt a list of CG agencies. Advised that pt may need assistance at home with dressing, bathing, ADLs post-op. She was agreeable to CG list. Emailed to [email or web address].
Watch if status changes to PSR
Patient to arrange private CGs for post-op assistance
[facility] PT when cleared by
[facility] remains available if plans change, no referral placed at this time.
[2024-10-01 13:54] LABS: Hematocrit 31.6 % (37.0-47.0); Hemoglobin 10.7 g/dL (12.0-16.0); Mean Corp Hgb Conc. 33.9 g/dL (33.0-37.0); Mean Corpuscular Volume 97.5 fL (81.0-99.0); Mean Platelet Volume 10.6 fL (7.4-10.4); Platelet Count 151 10^3/uL (130-400); Red Blood Cell Count 3.24 10^6/uL (4.20-5.40); Red Cell Dist. Width 12.9 % (11.5-14.5)
[2024-10-01 14:04] VITALS: BMI 46.9
[2024-10-01 14:08] LABS: ALT (SGPT) 23 U/L (0-35); AST (SGOT) 25 U/L (14-36); Albumin 3.8 g/dl (3.5-5.0); Alkaline Phosphatase 56 U/L (38-126); Blood Urea Nitrogen 32 mg/dl (7-17); Calcium 10.7 mg/dl (8.4-10.2); Carbon Dioxide 29 mmol/L (22-30); Chloride 113 mmol/L (98-107); Estimated Creatinine Clearance 50 ml/min; Glucose 85 mg/dl (70-99); Glycohemoglobin (HgbA1c) 5.1 % (4.0-5.6); Sodium 145 mmol/L (135-145); Total Bilirubin 1.4 mg/dl (0.2-1.3); Total Protein 6.9 g/dl (6.3-8.2); eGFR 54.39
[2024-10-01 18:01] VITALS: BMI 46.9
--- NOTE | 2024-10-02 13:55 | W.PN.UPDATE ---
Update Note
Progress Note Update
Mild renal impairment compared to baseline, as well as hypotension at my visit--discussed with PCP re lowering or d/c renally excreted BP meds. Given she is opioid tolerant and likely in need of additional pain meds, we will monitor BP closely due
to risk of orthostasis. Midodrine, TEDs and IVF.
[2024-10-09] VITALS (17 sets, daily range): BP systolic 99–167; BP diastolic 67–98
[2024-10-09] MEDS: CELEBREX 200 MG PO (08:09)
[2024-10-09] MEDS: TYLENOL 1000 MG PO (08:09)
[2024-10-09] MEDS: NORMOSOL-R/PLASMALYTE-A 1000 IV ×2 (08:09→15:13)
[2024-10-09] MEDS: BACTROBAN NASAL 1 GRAM NASAL (08:10)
--- NOTE | 2024-10-09 08:11 | W.DS.TRANS ---
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
-
Discharge Instructions:
Discharge Diagnosis/Procedures L shoulder 10/09/24
Diet As tolerated
Activity With assistance
Additional Activity Adequate hydration, minimize Oxy and wear TEDs
stockings to prevent low blood pressure/
dizziness
Driving Restrictions No driving
Other Services VN,PT,OT
Instructions:
Stand-Alone Forms: Total Shoulder Replacement D/C
Changes to Home Medications: Yes
Discharge Medications:
DC Medications w/original date entered in [facility]
anastrozole 1 mg tablet 1 mg PO DAILY Hormonal Agent 09/04/16
atorvastatin 20 mg tablet 20 mg PO DAILY High Cholesterol 10/30/22
escitalopram oxalate 20 mg tablet (Lexapro) 20 mg PO DAILY Mental Health/Anxiety 10/30/22
gabapentin 300 mg capsule 600 mg PO HS Neurological Condition 10/30/22
metoprolol succinate 100 mg tablet,extended release 24 hr 100 mg PO DAILY Blood Pressure 10/31/22
cyclobenzaprine 10 mg tablet 10 mg PO Q8H PRN Spasms 07/15/23
oxybutynin chloride 5 mg tablet 5 mg PO HS Urinary Issue 07/15/23
evening primrose oil 500 mg capsule 1,000 mg PO BID 12/05/23
krill oil 500 mg capsule 500 mg PO DAILY Supplement 12/05/23
multivitamin-ferrous fumarate-folic acid 18 mg-400 mcg tablet (Centrum Women) 1 tab PO DAILY Supplement 12/05/23
oxycodone 20 mg tablet 20 mg PO Q4HPRN PRN pain 09/18/24
semaglutide (weight loss) 1.7 mg/0.75 mL subcutaneous pen injector (Wegovy) 1.7 mg SC PERES 09/18/24
celecoxib 200 mg capsule 200 mg PO DAILY Anti-inflammatory #14 caps 10/01/24
dexamethasone 4 mg tablet 4 mg PO BID inflammation #6 tabs 10/01/24
doxycycline hyclate 100 mg capsule 100 mg PO BID infection prevention #10 caps 10/01/24
famotidine 20 mg tablet 20 mg PO HS GI prophylaxis #30 tabs 10/01/24
mupirocin 2 % topical ointment 1 applic topical BID infection prevention #1 tube 10/01/24
Saccharomyces boulardii 250 mg capsule (Florastor) 250 mg PO BID #1 cap 10/09/24
aspirin 325 mg tablet 325 mg PO DAILY blood clot prevention #1 tab 10/09/24
docusate sodium 100 mg capsule (Colace) 100 mg PO BID stool softner #1 cap 10/09/24
losartan 100 mg tablet 100 mg PO DAILY Blood Pressure #0 tabs 10/09/24
magnesium hydroxide 400 mg/5 mL oral suspension (Milk of Magnesia) 30 ml PO HS PRN constipation #1 mL 10/09/24
nifedipine 30 mg tablet,extended release 30 mg PO DAILY #30 tabs 10/09/24
sennosides 8.6 mg tablet (Senokot) 17.2 mg (2 x 8.6 mg) PO BID laxative #2 tabs 10/09/24
Home Medication Changes
celecoxib 200 mg capsule 200 mg PO DAILY Anti-inflammatory #14 caps 10/01/24
dexamethasone 4 mg tablet 4 mg PO BID inflammation #6 tabs 10/01/24
doxycycline hyclate 100 mg capsule 100 mg PO BID infection prevention #10 caps 10/01/24
famotidine 20 mg tablet 20 mg PO HS GI prophylaxis #30 tabs 10/01/24
mupirocin 2 % topical ointment 1 applic topical BID infection prevention #1 tube 10/01/24
Saccharomyces boulardii 250 mg capsule (Florastor) 250 mg PO BID #1 cap 10/09/24
aspirin 325 mg tablet 325 mg PO DAILY blood clot prevention #1 tab 10/09/24
docusate sodium 100 mg capsule (Colace) 100 mg PO BID stool softner #1 cap 10/09/24
losartan 100 mg tablet 100 mg PO DAILY Blood Pressure #0 tabs 10/09/24
magnesium hydroxide 400 mg/5 mL oral suspension (Milk of Magnesia) 30 ml PO HS PRN constipation #1 mL 10/09/24
nifedipine 30 mg tablet,extended release 30 mg PO DAILY #30 tabs 10/09/24
sennosides 8.6 mg tablet (Senokot) 17.2 mg (2 x 8.6 mg) PO BID laxative #2 tabs 10/09/24
Pending Results: No
--- NOTE | 2024-10-09 09:02 | W.PN.ORTHO ---
Today's Communication / Plan
-
d/c when stable
Assessment
.
Dressing:
Clean, dry and intact.
Assessment:
Opioid dependent. Patient has a pain specialist, which she is
meeting with in the near future. We will likely need to increase
interval of 20 mg oxycodone tablets. Typically, we would utilize
OxyContin b.i.d. for her. However, baseline blood pressure is
extremely low, being 78/61. I have given her parameters to apply
for two of her antihypertensives, and she will discuss this with
her primary at clearance visit. We will monitor blood pressure
postoperatively and include midodrine with IV fluids. Pain
management will include IV Decadron, Lyrica, and oxycodone while
inpatient. If blood pressure tolerates, we may include OxyContin
b.i.d.
Mild renal impairment compared to baseline, as well as
hypotension at my visit--discussed with PCP re lowering or
d/c one renally excreted BP med. Given she is opioid tolerant and likely in
need of additional pain meds, we will monitor BP closely due to risk of
orthostasis. Midodrine, TEDs and IVF. [facility] POD#1.
Plan
.
Surgery / Date: L shoulder
DVT Prophylaxis: Aspirin
Activity:
Out of bed.
PT/OT
Vital Signs and Labs
.
Vital Signs and Labs:
Lab Results
10/01/24 13:26
10/01/24 13:26
Temp Pulse Resp BP Pulse Ox
98.5 F 58 16 99/70 97
10/09/24 07:33 10/09/24 07:33 10/09/24 07:33 10/09/24 07:33 10/09/24 07:33
[2024-10-09] MEDS: DILAUDID 0.5 MG IV (11:29)
[2024-10-09] MEDS: ROXICODONE 20 MG PO ×2 (11:45→23:01)
[2024-10-09] MEDS: TYLENOL 650 MG PO ×3 (11:50→22:42)
[2024-10-09] MEDS: ProAmatine PO ×2 (15:11→17:30)
[2024-10-09] MEDS: ARIMIDEX 1 MG PO (15:34)
[2024-10-09] MEDS: ANCEF 5 IV ×2 (15:34→23:02)
[2024-10-09] MEDS: LEXAPRO 20 MG PO (15:34)
--- NOTE | 2024-10-09 16:11 | PTCARENOTE ---
Pt arrived to [facility] from PACU at 1445. Pt has left shoulder primaseal with some shadowing and a shoulder immobilizer on. IVF infusing. Admission questions answered. Pt oriented to room and call serrano. Bed locked and in lowest position. Care ongoing.
[2024-10-09] MEDS: LYRICA 100 MG PO (17:30)
[2024-10-09] MEDS: LIPITOR 20 MG PO (17:30)
[2024-10-09] MEDS: ASPIRIN 325 MG PO (17:30)
--- NOTE | 2024-10-09 18:15 | VATNOTE ---
VAT rounds: during routine assessment of pt's IV site, it was noted that pt had an IV in her R hand and a limb restriction bracelet on her R arm. When discussed with pt and visitors, pt states pt had breast ca with lymph node dissection. Discussed
with PCN who informed this RN that pt would not allow SDS to place an IV in her foot and her L arm was her operative arm. Pt still drowsy from anesthesia, so unable to educate pt about the risks associated with IV placement in a limb with lymph node
dissection. Asked PCN to follow up with MD for order for R arm IV since limb is restricted.
[2024-10-09] MEDS: ATIVAN 1 MG IV (22:36)
[2024-10-09] MEDS: BACTROBAN 2% OINTMENT 1 APPLIC NASAL (22:39)
[2024-10-09] MEDS: DECADRON 4 MG IV (22:41)
[2024-10-09] MEDS: COLACE 100 MG PO (22:41)
[2024-10-09] MEDS: DITROPAN 5 MG PO (22:42)
[2024-10-09] MEDS: NSS (PRESERVATIVE FREE) 0.5 ML IV (22:42)
[2024-10-09] MEDS: SENOKOT 17.2 MG PO (22:42)
[2024-10-10] MEDS: TYLENOL PO ×2 (01:02→14:00)
[2024-10-10 03:00] VITALS: BP 118/82
[2024-10-10] MEDS: ROXICODONE 20 MG PO (04:11)
[2024-10-10] MEDS: TYLENOL 650 MG PO ×5 (04:12→23:10)
[2024-10-10] MEDS: LYRICA 100 MG PO (05:40)
--- NOTE | 2024-10-10 06:24 | PTCARENOTE ---
Pt. refusing to have lab work drawn from lower extremities despite her BLUE being limb restricted. Pt. requesting lab work to be drawn from R hand.
[2024-10-10 06:31] LABS: Blood Urea Nitrogen 24 mg/dl (7-17); Calcium 9.7 mg/dl (8.4-10.2); Carbon Dioxide 27 mmol/L (22-30); Chloride 110 mmol/L (98-107); Estimated Creatinine Clearance 68 ml/min; Glucose 144 mg/dl (70-99); Potassium 4.4 mmol/L (3.5-5.1); Sodium 140 mmol/L (135-145); eGFR > 60.00
[2024-10-10 07:05] VITALS: BP 131/67
[2024-10-10] MEDS: SENOKOT 17.2 MG PO ×2 (08:03→19:17)
[2024-10-10] MEDS: ProAmatine 5 MG PO ×2 (08:03→17:30)
[2024-10-10] MEDS: ASPIRIN 325 MG PO (08:03)
[2024-10-10] MEDS: LEXAPRO 20 MG PO (08:04)
[2024-10-10] MEDS: COLACE 100 MG PO ×2 (08:04→19:40)
[2024-10-10] MEDS: TOPROL XL PO (08:04)
[2024-10-10] MEDS: ARIMIDEX 1 MG PO (08:05)
[2024-10-10] MEDS: TORADOL 15 MG IV (08:06)
[2024-10-10] MEDS: DECADRON 4 MG IV ×2 (08:06→19:40)
[2024-10-10] MEDS: ATIVAN 1 MG IV (08:08)
[2024-10-10] MEDS: NSS (PRESERVATIVE FREE) 0.5 ML IV (08:11)
--- NOTE | 2024-10-10 08:51 | CM ---
CM reviewed medical records. CM attempted to meet with patient in room. Patient was lethargic and did not respond to CM's verbal prompts. CM will return when patient is able to participate in IA.
[facility], she is following for discharge planning needs. CM is further awaiting PT evaluations.
PLAN: Pending PT/OT evaluation.
[2024-10-10] MEDS: BACTROBAN 2% OINTMENT 1 APPLIC NASAL ×2 (08:55→19:40)
--- NOTE | 2024-10-10 10:11 | W.PN.ORTHO ---
Today's Communication / Plan
-
d/c am if stable
Assessment
.
Distal Motor Intact: Yes
Dressing:
Clean, dry and intact.
Assessment:
Oversedation-not made aware until POD#1
Opioid dependent. Patient has a pain specialist.
Baseline blood pressure was extremely low pre-op, being 78/61.
Medication adjustments were discussed with PCP b/f surgery. She
will continue parameters p/o. Midodrine with IV fluids while inpatient.
-pain control will include IV Decadron w/ daily Toradol to minimize opioid.
-we will d/c/hold sedatives/opioid at present until more alert.
Mild renal impairment compared to baseline, as well as
hypotension at my pre-op visit--discussed with PCP re lowering or
d/c renally excreted BP med. Given she is opioid tolerant and in
need of pain meds, we will monitor BP closely due to risk of
orthostasis. Midodrine, TEDs and IVF.
-BMP POD#1 is improved with renal function now at baseline.
Plan
.
Surgery / Date: L shoulder hemiarthroplasty 10/09/24
DVT Prophylaxis: Aspirin
Activity:
Out of bed.
PT/OT
Discharge Plan: Home w/ VN
Subjective
.
.:
Patient resting comfortably.
Drowsy but arousable
Vital Signs and Labs
.
Vital Signs and Labs:
Lab Results
10/01/24 13:26
10/10/24 05:39
Temp Pulse Resp BP Pulse Ox
98.1 F 73 16 131/67 96
10/10/24 07:05 10/10/24 08:04 10/10/24 07:05 10/10/24 08:04 10/10/24 07:05
Non-invasive Hgb result: 11.6
Physical Exam
-
HEENT: No pallor, cyanosis, or jaundice. Throat clear.
NECK: Supple. No JVD.
RESPIRATORY: Lungs clear to auscultation.
CVS: S1, S2 normal. RRR.� No murmur, rub or gallop.
ABDOMEN: Soft, non-tender. No distension. BS+/normal.
EXTREMITIES: strength equal, no calf pain with palpation
SURGICAL ATTENDANT: AOx3. No focal deficits. assembler skylights grossly intact
[2024-10-10 11:10] VITALS: BP 135/93
[2024-10-10] MEDS: ProAmatine PO (13:59)
[2024-10-10 15:00] VITALS: BP 112/83
[2024-10-10 15:38] VITALS: BP 126/97; PULSE 95; O2SAT 99
[2024-10-10] MEDS: LIPITOR 20 MG PO (17:30)
[2024-10-10] MEDS: ROXICODONE 15 MG PO (19:15)
[2024-10-10] MEDS: DITROPAN 5 MG PO (22:49)
[2024-10-10 23:00] VITALS: BP 148/81
[2024-10-11] MEDS: TUMS CHEWABLE TABLET 200 MG PO (00:16)
[2024-10-11] MEDS: ROXICODONE 5 MG PO ×2 (00:16→11:57)
[2024-10-11] MEDS: ROXICODONE 15 MG PO ×2 (01:55→08:48)
[2024-10-11] MEDS: TYLENOL 650 MG PO ×3 (03:22→11:57)
[2024-10-11 07:40] VITALS: BP 179/95
[2024-10-11] MEDS: ASPIRIN 325 MG PO (08:35)
[2024-10-11] MEDS: TOPROL XL 25 MG PO (08:35)
[2024-10-11] MEDS: LEXAPRO 20 MG PO (08:35)
[2024-10-11] MEDS: ProAmatine PO ×2 (08:36→14:04)
[2024-10-11] MEDS: SENOKOT 17.2 MG PO (08:36)
[2024-10-11] MEDS: COLACE 100 MG PO (08:36)
[2024-10-11] MEDS: ARIMIDEX 1 MG PO (08:36)
[2024-10-11] MEDS: DECADRON 4 MG IV (08:36)
[2024-10-11] MEDS: TORADOL 15 MG IV (08:37)
--- NOTE | 2024-10-11 09:50 | CM ---
CM met with patient in room. Patient will have support from her family during the day. Patient has hired a private caregiver for PM assistance through [facility]. She is agreeable to VN. Patient is active with her PCP. Patient plans
to use [facility].
PLAN: home with family, private pay caregivers and [facility].
[2024-10-11 10:44] VITALS: PULSE 63; O2SAT 97
--- NOTE | 2024-10-11 11:46 | W.PN.ORTHO ---
Today's Communication / Plan
-
d/c
Assessment
.
Distal Motor Intact: Yes
Dressing:
Clean, dry and intact.
Assessment:
Oversedation-not made aware until POD#1
Opioid dependent. Patient has a pain specialist.
Baseline blood pressure was extremely low pre-op, being 78/61.
Medication adjustments were discussed with PCP b/f surgery. She
will continue parameters p/o. Midodrine with IV fluids while inpatient.
-pain control will include IV Decadron w/ daily Toradol to minimize opioid.
-sedatives/opioid held --currently AOx3-resume
Mild renal impairment compared to baseline, as well as
hypotension at my pre-op visit--discussed with PCP re lowering or
d/c renally excreted BP med. Given she is opioid tolerant and in
need of pain meds, we will monitor BP closely due to risk of
orthostasis. Midodrine, TEDs and IVF.
-BMP POD#1 is improved with renal function now at baseline.
*Prevention of post-op complications re orthostasis and constipation/ileus --discussed and outlined in d/c instructions: TEDs stockings, minimizing opioid, adequate hydration and adhering to bowel regimen*
Plan
.
Surgery / Date: L shoulder hemiarthroplasty 10/09/24
DVT Prophylaxis: Aspirin
Activity:
Out of bed.
PT/OT
Discharge Plan: Home w/ [facility]N
Subjective
.
.:
Patient resting comfortably.
Vital Signs and Labs
.
Vital Signs and Labs:
Lab Results
10/01/24 13:26
10/10/24 05:39
Temp Pulse Resp BP Pulse Ox
97.7 F 61 18 179/95 95
10/11/24 07:40 10/11/24 07:40 10/11/24 07:40 10/11/24 07:40 10/11/24 07:40
Non-invasive Hgb result: 11.6
Physical Exam
-
HEENT: No pallor, cyanosis, or jaundice. Throat clear.
NECK: Supple. No JVD.
RESPIRATORY: Lungs clear to auscultation.
CVS: S1, S2 normal. RRR.� No murmur, rub or gallop.
ABDOMEN: Soft, non-tender. No distension. BS+/normal.
EXTREMITIES: strength equal, no calf pain with palpation
INVENTORY ASSOCIATE: AOx3. No focal deficits. paver installer grossly intact
[2024-10-11 11:58] VITALS: BP 149/84; PULSE 63; O2SAT 97
[2024-10-11 12:09] VITALS: BP 148/73
== END 2024-10-11 15:15 | disposition home health service (06) | DRG 483 ==
LOC: 2 SOUTH 13:40
PROVIDERS: Physician Assistant Medical; ADMITTING PHYSICIAN Orthopaedic Surgery Hand Surgery; FAMILY PHYSICIAN Student in an Organized Health Care Education/Training Program
PROC: 0RRK0J6 Replacement of Left Shoulder Joint with Synthetic Substitute, Humeral Surface, Open Approach (ICD-10-PCS; 2024-10-09)
DX: M19.012 Primary osteoarthritis, left shoulder (principal); Z68.42 Body mass index [BMI] 45.0-49.9, adult; F11.20 Opioid dependence, uncomplicated; E66.01 Morbid (severe) obesity due to excess calories; I10 Essential (primary) hypertension; E78.5 Hyperlipidemia, unspecified; G47.33 Obstructive sleep apnea (adult) (pediatric); G89.29 Other chronic pain; N28.9 Disorder of kidney and ureter, unspecified; I95.9 Hypotension, unspecified; F41.9 Anxiety disorder, unspecified; Z96.652 Presence of left artificial knee joint; Z96.641 Presence of right artificial hip joint; Z85.3 Personal history of malignant neoplasm of breast; Z92.3 Personal history of irradiation; Z90.49 Acquired absence of other specified parts of digestive tract; Z98.82 Breast implant status; Z91.048 Other nonmedicinal substance allergy status
CPT/HCPCS: 36415; 73020; 80048; 80053; 83036; 85027; 86850; 86900; 86901; 87070; 87147; 93005; 97110; 97116; 97162; 97167; 97535

== ENCOUNTER → 2025-02-17 13:34 | Outpatient (REF) | payer MEDICARE, SELFPAY | LOC: HWRAD 13:34 | PROVIDERS: ATTENDING PHYSICIAN Orthopaedic Surgery Hand Surgery; FAMILY PHYSICIAN Student in an Organized Health Care Education/Training Program | DX: M12.811 Other specific arthropathies, not elsewhere classified, right shoulder (principal) | CPT/HCPCS: 73200 ==

== ENCOUNTER 2025-02-19 07:57 | Inpatient (IN) | payer MEDICARE, SELFPAY ==
--- NOTE | 2025-02-11 12:56 | CM ---
Demographics: confirmed
Living situation: Patient lives with sister, possible that her daughter and daughter in law will come from out of state to assist.
Support Person Post Operatively: Sister
History of
VN: [facility], currently not on service
SNF: No
Outpatient: History of [facility]
Has patient purchased required equipment: yes
PCP: [facility]
Pharmacy: [facility]
Post Operative Discharge Plan: Home, most likely with [facility].
[2025-02-13 11:42] VITALS: BMI 42.7
[2025-02-13 12:30] LABS: Hematocrit 33.3 % (37.0-47.0); Hemoglobin 11.1 g/dL (12.0-16.0); Mean Corp Hgb Conc. 33.3 g/dL (33.0-37.0); Mean Corpuscular Volume 96.2 fL (81.0-99.0); Platelet Count 198 10^3/uL (130-400); Red Cell Dist. Width 13.5 % (11.5-14.5)
[2025-02-13 13:01] VITALS: BMI 42.7
[2025-02-13 13:47] LABS: ALT (SGPT) 16 U/L (0-35); AST (SGOT) 24 U/L (14-36); Albumin 4.0 g/dl (3.5-5.0); Alkaline Phosphatase 87 U/L (38-126); Blood Urea Nitrogen 29 mg/dl (7-17); Calcium 10.1 mg/dl (8.4-10.2); Carbon Dioxide 32 mmol/L (22-30); Chloride 106 mmol/L (98-107); Estimated Creatinine Clearance 62 ml/min; Glucose 92 mg/dl (70-99); Potassium 4.7 mmol/L (3.5-5.1); Sodium 143 mmol/L (135-145); Total Protein 7.0 g/dl (6.3-8.2); eGFR > 60.00
[2025-02-14 09:51] LABS: Glycohemoglobin (HgbA1c) 5.2 % (4.0-5.6)
[2025-02-19] VITALS (11 sets, daily range): BP systolic 113–161; BP diastolic 60–96; PULSE 65–79; BMI 42.7
--- NOTE | 2025-02-19 08:13 | W.PN.UPDATE ---
Update Note
Progress Note Update
R shoulder OA w/ rotator cuff arthropathy s/p R Reverse TSA w/ Dr Wilkinson 02/19/2025
- s/p L TSA, 09/2024, by Dr Wilkinson and previous R WILLIE and L TKA
DVT prophylaxis - ASA, b/l venous foot pumps
HTN - + parameters - monitor BP
H/o orthostasis after previous L TSA - monitor serial orthostatic VS
- IVF running. Encourage oral hydration
- Midodrine for SBP <125
- Minimize opioids as able. Of note, patient is opioid dependent
Obstructive sleep apnea, CPAP compliant - monitor O2
- IS
- Decadron to help w/ lung perfusion
- Resume CPAP HS
Chronic pain w/ opioid dependence - OxyContin 20 mg q12h w/ IR Oxycodone q4hprn for mod-severe breakthrough pain
- Multimodal pain approach to include Toradol, Decadron, Tylenol ATC, Gabapentin HS
- Monitor for oversedation. Was reportedly oversedated briefly after L TSA. Will include Narcan prn
- Avoid Lidocaine patches for now considering ADR to adhesive
- Follows pain mgmt (Crystal) who has Rx pain meds for d/c use
History of left lower extremity wound, [facility], now resolved - Doxycycline for ortho prophylaxis upon d/c
MRSA positive - recurrent on nasal swab - IV Vanco in addition to IV Ancef candelaria-op
- Started on nasal Mupirocin pre-op. Will continue for 3 weeks post-op as incision heals
HLD
Degenerative disc disease/spinal stenosis
Breast cancer, 10 years ago, s/p right lumpectomy and radiation
Anxiety
Morbid obesity, BMI 42.7
[2025-02-19] MEDS: BACTROBAN NASAL 1 GRAM NASAL (08:55)
[2025-02-19] MEDS: VANCOCIN 530 MG IV (08:58)
[2025-02-19] MEDS: NORMOSOL-R/PLASMALYTE-A 1000 IV ×2 (08:58→13:56)
[2025-02-19] MEDS: LEXAPRO PO (14:09)
[2025-02-19] MEDS: OXYCONTIN (CONTROLLED RELEASE) PO (14:09)
--- NOTE | 2025-02-19 14:10 | PTCARENOTE ---
Received patient from PACU around 1300 via bed in stable condition. Patient extremely drowsy. Arousable but falling asleep during short conversation. 20 mg oxycontin controlled release po ordered but held due to sedation. Patricia Cain PA-C made
aware. RUE in sling. Dressing intact to R shoulder. Patient can wiggle fingers but has decreased sensation. + Radial pulse. Patient oriented to room. Call serrano in reach on left side.
[2025-02-19] MEDS: TYLENOL 650 MG PO ×2 (17:23→20:48)
[2025-02-19] MEDS: ANCEF 5 IV (17:24)
[2025-02-19] MEDS: ASPIRIN 325 MG PO (17:24)
[2025-02-19] MEDS: BACTROBAN 2% OINTMENT 1 APPLIC NASAL (20:47)
[2025-02-19] MEDS: COLACE 100 MG PO (20:47)
[2025-02-19] MEDS: DECADRON 4 MG PO (20:47)
[2025-02-19] MEDS: VANCOCIN 200 IV (20:48)
[2025-02-19] MEDS: SENOKOT 17.2 MG PO (20:48)
[2025-02-19] MEDS: DITROPAN 5 MG PO (22:07)
[2025-02-19] MEDS: OXYCONTIN (CONTROLLED RELEASE) 20 MG PO (22:07)
[2025-02-19] MEDS: NEURONTIN 300 MG PO (22:07)
[2025-02-19] MEDS: PEPCID 20 MG PO (22:07)
[2025-02-20] MEDS: ANCEF 5 IV (00:41)
[2025-02-20] MEDS: TYLENOL PO (00:55)
[2025-02-20 03:15] VITALS: BP 160/91
[2025-02-20] MEDS: TYLENOL 650 MG PO ×2 (03:39→09:26)
[2025-02-20] MEDS: ROXICODONE 20 MG PO ×2 (03:46→09:39)
[2025-02-20 07:45] VITALS: BP 130/77
--- NOTE | 2025-02-20 09:15 | W.PN.ORTHO ---
Today's Communication / Plan
-
Await OT recs. Pt lives w/ retired sister and mother, dgt from out of state to be present.
Monitor O2 while weaning off supplemental oxygen.
D/c later today if clinically stable.
Assessment
.
Distal Motor Intact: Yes
Dressing:
Scant areas of old bleeding along incision line.
Assessment:
R shoulder OA w/ rotator cuff arthropathy s/p R Reverse TSA w/ Dr Wilkinson 02/19/2025
- s/p L TSA, 09/2024, by Dr Wilkinson and previous R WILLIE and L TKA
DVT prophylaxis - ASA, b/l venous foot pumps
HTN - + parameters - BPs overall stable
H/o orthostasis after previous L TSA - serial orthostatic VS WNL
- S/p IVF. Encouraged oral hydration
- Midodrine for SBP <125 while inpatient
- Continue to minimize opioids as able. Of note, patient is opioid dependent
- TEDS recommended
Obstructive sleep apnea, CPAP compliant - SpO2 97% on 2L this AM (of note, lungs CTA b/l, no tachypnea, no SOB reported) - wean off supplemental O2 as tolerated
- IS not used overnight. Reinforced this today
- Decadron to help w/ lung perfusion
- Resumed CPAP HS
Chronic pain w/ opioid dependence - OxyContin 20 mg q12h w/ IR Oxycodone q4hprn for mod-severe breakthrough pain
- Multimodal pain approach to include Toradol, Decadron, Tylenol ATC, Gabapentin HS
- No oversedation by POD 1. Narcan available if needed
- Avoid Lidocaine patches for now considering ADR to adhesive
- Follows pain mgmt (Crystal) who has Rx pain meds for d/c use
History of left lower extremity wound, [facility], now resolved - Doxycycline for ortho prophylaxis upon d/c
MRSA positive - recurrent on nasal swab - IV Vanco in addition to IV Ancef candelaria-op
- Started on nasal Mupirocin pre-op. Will continue for 3 weeks post-op as incision heals
HLD
Degenerative disc disease/spinal stenosis
Breast cancer, 10 years ago, s/p right lumpectomy and radiation
Anxiety
Morbid obesity, BMI 42.7
Plan
.
Surgery / Date: R Rigoberto NASCIMENTO w/ Dr Wilkinson 02/19/2025
DVT Prophylaxis: Aspirin
Activity:
Out of bed.
PT/OT
Discharge Plan: Home (vs home w/ VN/OT -> will await OT recs. )
Subjective
.
.:
Patient examined resting in bed. Appears to be comfortable.
On 2L supplemental O2 - likely 2* underlying DREW, [place]. Lungs CTA. Will wean off as tolerated.
Denies any new significant complaints.
Eager for potential d/c today.
Vital Signs and Labs
.
Vital Signs and Labs:
Lab Results
02/13/25 10:55
02/13/25 10:55
Temp Pulse Resp BP Pulse Ox
98.1 F 73 16 130/77 97
02/20/25 07:45 02/20/25 07:45 02/20/25 07:45 02/20/25 07:45 02/20/25 07:45
Non-invasive Hgb result: 11.9
Physical Exam
-
HEENT: No pallor, cyanosis, or jaundice. Throat clear.
NECK: Supple. No JVD.
RESPIRATORY: Lungs clear to auscultation.
CVS: S1, S2 normal. RRR.�
ABDOMEN: Soft, non-tender. Non-distended. Morbidly obese.
EXTREMITIES: + RUE sling. Good traffic chief/radial pulses b/l. Able to wiggle fingers b/l. LE strength equal, no calf pain with palpation/dorsiflexion. Calves soft.
PRODUCTION CREW SUPERVISOR: AOx3. No focal deficits. flight physician grossly intact
[2025-02-20] MEDS: ASPIRIN 325 MG PO (09:26)
[2025-02-20] MEDS: LEXAPRO 20 MG PO (09:26)
[2025-02-20] MEDS: SENOKOT 17.2 MG PO (09:26)
[2025-02-20] MEDS: BACTROBAN 2% OINTMENT 1 APPLIC NASAL (09:26)
[2025-02-20] MEDS: LIPITOR 20 MG PO (09:26)
[2025-02-20] MEDS: TORADOL 15 MG IV (09:27)
[2025-02-20] MEDS: COLACE 100 MG PO (09:27)
[2025-02-20] MEDS: ARIMIDEX 1 MG PO (09:27)
[2025-02-20] MEDS: OXYCONTIN (CONTROLLED RELEASE) 20 MG PO (09:27)
[2025-02-20] MEDS: TOPROL XL 100 MG PO (09:28)
[2025-02-20] MEDS: DECADRON 4 MG PO (09:40)
--- NOTE | 2025-02-20 11:09 | W.DS.TRANS ---
DC Summary - Software Application Tester
-
Discharge Instructions:
Discharge Diagnosis/Procedures R shoulder OA w/ rotator cuff arthropathy s/p R
Reverse TSA Dr Wilkinson 02/19/25
Diet Regular
Additional Diets Adequate hydration, minimize opioids, and wear
TEDs stockings to prevent low blood pressure/
dizziness
Activity As tolerated
Additional Activity Non-weightbearing right upper extremity
Driving Restrictions No driving
Bathing Restrictions OK to shower in 72 hours
Other Services V[facility],OT
Wound Care Leave dressing on until seen by surgeon's office
for follow-up in 2 weeks.
Instructions:
Stand-Alone Forms: Total Shoulder Replacement D/C
Changes to Home Medications: Yes
Discharge Medications:
DC Medications w/original date entered in [email or web address]
anastrozole 1 mg tablet 1 mg PO DAILY Hormonal Agent 09/04/16
atorvastatin 20 mg tablet 20 mg PO DAILY High Cholesterol 10/30/22
escitalopram oxalate 20 mg tablet (Lexapro) 20 mg PO DAILY Mental Health/Anxiety 10/30/22
metoprolol succinate 100 mg tablet,extended release 24 hr 100 mg PO DAILY Blood Pressure 10/31/22
oxybutynin chloride 5 mg tablet 5 mg PO HS Urinary Issue 07/15/23
evening primrose oil 500 mg capsule 1,000 mg PO BID 12/05/23
Held on 02/20/25. Instructions: Resume on 02/26/25.
krill oil 500 mg capsule 500 mg PO DAILY Supplement 12/05/23
Held on 02/20/25. Instructions: Resume on 02/26/25.
multivitamin-ferrous fumarate-folic acid 18 mg-400 mcg tablet (Centrum Women) 1 tab PO DAILY Supplement 12/05/23
semaglutide (weight loss) 2.4 mg/0.75 mL subcutaneous pen injector (Wegovy) 2.4 mg SC MO Diabetes 02/12/25
celecoxib 200 mg capsule 200 mg PO DAILY Anti-inflammatory #14 caps 02/13/25
dexamethasone 4 mg tablet 4 mg PO BID inflammation #6 tabs 02/13/25
doxycycline hyclate 100 mg capsule 100 mg PO BID infection prevention #10 caps 02/13/25
famotidine 20 mg tablet 20 mg PO HS GI prophylaxis #30 tabs 02/13/25
ondansetron 4 mg disintegrating tablet 4 mg PO Q6H PRN n/v #20 tabs 02/13/25
Saccharomyces boulardii 250 mg capsule (Florastor) 250 mg PO BID #10 caps 02/20/25
acetaminophen 500 mg tablet (Acetaminophen Extra Strength) 1,000 mg (2 x 500 mg) PO Q6H #30 tabs 02/20/25
aspirin 325 mg tablet 325 mg PO DAILY #30 tabs 02/20/25
cyclobenzaprine 10 mg tablet 10 mg PO Q8H PRN Spasms #0 tabs 02/20/25
docusate sodium 100 mg capsule 100 mg PO BID #30 caps 02/20/25
losartan 100 mg tablet 100 mg PO DAILY Blood Pressure #1 tab 02/20/25
magnesium hydroxide 400 mg/5 mL oral suspension (Milk of Magnesia) 30 ml PO HS PRN Constipation #355 mL 02/20/25
mupirocin 2 % topical ointment 1 applic intranasal BID #1 tube 02/20/25
nifedipine 30 mg tablet,extended release 30 mg PO DAILY #30 tabs 02/20/25
oxycodone 10 mg tablet 20 mg (2 x 10 mg) PO Q4HPRN PRN severe breakthrough pain #90 tabs 02/20/25
oxycodone 10 mg tablet,crush resistant,extended release 12 hr (OxyContin) 10 mg PO Q12H chronic pain #60 tabs 02/20/25
sennosides 8.6 mg tablet (Jennifer-josé manuel) 17.2 mg (2 x 8.6 mg) PO BID #30 tabs 02/20/25
Home Medication Changes
celecoxib 200 mg capsule 200 mg PO DAILY Anti-inflammatory #14 caps 02/13/25
dexamethasone 4 mg tablet 4 mg PO BID inflammation #6 tabs 02/13/25
doxycycline hyclate 100 mg capsule 100 mg PO BID infection prevention #10 caps 02/13/25
famotidine 20 mg tablet 20 mg PO HS GI prophylaxis #30 tabs 02/13/25
ondansetron 4 mg disintegrating tablet 4 mg PO Q6H PRN n/v #20 tabs 02/13/25
Saccharomyces boulardii 250 mg capsule (Florastor) 250 mg PO BID #10 caps 02/20/25
acetaminophen 500 mg tablet (Acetaminophen Extra Strength) 1,000 mg (2 x 500 mg) PO Q6H #30 tabs 02/20/25
aspirin 325 mg tablet 325 mg PO DAILY #30 tabs 02/20/25
docusate sodium 100 mg capsule 100 mg PO BID #30 caps 02/20/25
magnesium hydroxide 400 mg/5 mL oral suspension (Milk of Magnesia) 30 ml PO HS PRN Constipation #355 mL 02/20/25
oxycodone 10 mg tablet 20 mg (2 x 10 mg) PO Q4HPRN PRN severe breakthrough pain #90 tabs 02/20/25 - per pain mgmt
oxycodone 10 mg tablet,crush resistant,extended release 12 hr (OxyContin) 10 mg PO Q12H chronic pain #60 tabs 02/20/25 - per pain mgmt
sennosides 8.6 mg tablet (Jennifer-josé manuel) 17.2 mg (2 x 8.6 mg) PO BID #30 tabs 02/20/25
Pending Results: No
--- NOTE | 2025-02-20 11:13 | CM ---
Addendum entered by Tanya De Leon RN 02/20/25 11:15:
IMM reviewed.
Original Note:
Reviewed the chart notes and spoke with the patient at the bedside. Patient agreeable to [facility], has had in the past. Referral sent via [facility].
Plan: Discharge to home with VN services.
[2025-02-20 11:25] VITALS: BP 102/75
[2025-02-20 11:59] VITALS: BP 128/62; PULSE 77; O2SAT 97
== END 2025-02-20 13:06 | disposition home health service (06) | DRG 483 ==
LOC: 2 SOUTH 07:57
PROVIDERS: ADMITTING PHYSICIAN Orthopaedic Surgery Hand Surgery; FAMILY PHYSICIAN Student in an Organized Health Care Education/Training Program
PROC: 0RRJ00Z Replacement of Right Shoulder Joint with Reverse Ball and Socket Synthetic Substitute, Open Approach (ICD-10-PCS; 2025-02-19)
DX: M19.011 Primary osteoarthritis, right shoulder (principal); F11.20 Opioid dependence, uncomplicated; Z68.41 Body mass index [BMI] 40.0-44.9, adult; M75.101 Unspecified rotator cuff tear or rupture of right shoulder, not specified as traumatic; I10 Essential (primary) hypertension; Z96.612 Presence of left artificial shoulder joint; G47.33 Obstructive sleep apnea (adult) (pediatric); G89.29 Other chronic pain; Z22.322 Carrier or suspected carrier of Methicillin resistant Staphylococcus aureus; E66.01 Morbid (severe) obesity due to excess calories; E78.5 Hyperlipidemia, unspecified; M48.00 Spinal stenosis, site unspecified; F41.9 Anxiety disorder, unspecified; Z85.3 Personal history of malignant neoplasm of breast; Z98.82 Breast implant status; Z96.652 Presence of left artificial knee joint; Z96.641 Presence of right artificial hip joint; M13.0 Polyarthritis, unspecified; Z91.048 Other nonmedicinal substance allergy status
CPT/HCPCS: 36415; 73020; 73200; 80053; 83036; 85027; 86850; 86900; 86901; 93005; 97110; 97167; 97535; C1713; C1776

== ENCOUNTER → 2025-04-03 08:11 | Outpatient (REF) | payer MEDICARE, SELFPAY | LOC: PAVMRI 08:11 | PROVIDERS: ATTENDING PHYSICIAN Student in an Organized Health Care Education/Training Program | DX: M54.50 Low back pain, unspecified (principal) | CPT/HCPCS: 72148 ==